=== PATIENT | male | born 1955 | race Hispanic/Latino ===

== ENCOUNTER 2018-01-15 15:38 | Inpatient (IN) | payer OTHER ==
[2018-01-15 17:42] LABS: Basophils % (Auto) 0.6 % (0.0-1.8); Eosinophils # (Auto) 0.2 K/mm3 (0.0-0.4); Hematocrit 31.4 % (35.5-45.6); Hemoglobin 10.2 gm/dl (11.8-15.2); Lymphocytes # (Auto) 0.5 K/mm3 (1.2-5.4); Lymphocytes % (Auto) 8.3 % (13.4-35.0); Mean Corpuscular HGB Conc 32 % (32-34); Mean Corpuscular Hemoglobin 28 pg (28-32); Mean Corpuscular Volume 87 fl (84-94); Monocytes # (Auto) 0.5 K/mm3 (0.0-0.8); Monocytes % (Auto) 7.5 % (0.0-7.3); Platelet Count 168 K/mm3 (140-440); Red Blood Count 3.61 M/mm3 (3.65-5.03); Red Cell Distribution Width 16.7 % (13.2-15.2)
[2018-01-15 18:04] LABS: Albumin 3.9 g/dL (3.9-5)
--- NOTE | 2018-01-15 21:50 | XRay Report ---
FINAL REPORT EXAM: XR CHEST ROUTINE 2V HISTORY: sob TECHNIQUE: 2 views of the chest. PRIORS: 01/15/2018 FINDINGS: Multiple sternotomy wires and coronary osteal rings are noted consistent with prior CABG. The cardiomediastinal silhouette appears normal. The lungs are clear. There is mild blunting of the left costophrenic angle consistent with a small pleural effusion or pleural scar. The bones and soft tissues are unremarkable. IMPRESSION: No evidence of acute cardiopulmonary disease
[2018-01-16] MEDS ORDERED: LASIX IV ONE (00:06)
--- NOTE | 2018-01-16 00:46 | Emergency Department Report ---
HPI - General Chief Complaint: Extremity Problem,Nontraumatic Time Seen by Provider: 01/16/18 00:04 - HPI HPI: 62-year-old male presents to ED with worsening of lower extremity swelling, for the past week. Patient has a history of chronic kidney disease stage III, has been on Lasix for lower extremity swelling without relief. His PCP recently change his Lasix to Bumex but his leg swelling did not improve so he was advised by his PCP to come to ED for further evaluation. ED Past Medical Hx - Past Medical History Hx Hypertension: Yes Hx Heart Attack/AMI: Yes Hx Congestive Heart Failure: Yes Hx Diabetes: Yes Hx Renal Disease: Yes Additional medical history: CHRONIC RENAL INSUFFIENCY - Surgical History Hx Open Heart Surgery: Yes Additional Surgical History: CABG - Social History Smoking Status: Never Smoker Substance Use Type: None - Medications Home Medications: Home Medications Medication Instructions Recorded Confirmed Last Taken Type AtorvaSTATin [Lipitor] 40 mg PO QHS 12/10/17 12/10/17 12/09/17 History Carvedilol [Coreg] 6.25 mg PO DAILY 12/10/17 12/10/17 12/10/17 History Clopidogrel [Plavix] 75 mg PO DAILY 12/10/17 12/10/17 12/10/17 History Insulin Aspart [NovoLOG Flexpen] 6 units SQ DAILY 12/10/17 12/10/17 12/10/17 History Insulin Detemir [Levemir Flextouch] 18 units SQ DAILY 12/10/17 12/10/17 History amLODIPine [Norvasc] 10 mg PO QDAY #30 tablet 12/13/17 Unknown Rx cloNIDine [Catapres] 0.2 mg PO QID #90 tablet 12/13/17 Unknown Rx ED Review of Systems ROS: Stated complaint: FLUID IN LEGS Other details as noted in HPI Comment: All other systems reviewed and negative Constitutional: no symptoms reported Cardiovascular: dyspnea on exertion, orthopnea, edema Hematological/Lymphatic: other (lower extremity swelling) Physical Exam - Physical Exam Vital Signs: Vital Signs 01/15/18 01/15/18 01/16/18 16:49 23:59 00:02 Temperature 97.9 F Pulse Rate 64 72 Respiratory 16 17 Rate Blood Pressure 172/63 O2 Sat by Pulse 94 85 Oximetry 01/16/18 01/16/18 00:15 00:25 Temperature Pulse Rate 67 Respiratory 8 L 13 Rate Blood Pressure 181/82 O2 Sat by Pulse 96 96 Oximetry Physical Exam: - Physical Exam Physical Exam: - General Limitations: No Limitations General appearance: alert, in no apparent distress - Head Head exam: Present: atraumatic, normocephalic - Eye Eye exam: Present: normal appearance - ENT ENT exam: Present: mucous membranes moist - Neck Neck exam: Present: normal inspection - Respiratory Respiratory exam: Present: normal lung sounds bilaterally. Absent: respiratory distress - Cardiovascular Cardiovascular Exam: Present: normal rhythm, normal rate. Absent: systolic murmur, diastolic murmur, rubs, gallop - GI/Abdominal GI/Abdominal exam: Present: soft, normal bowel sounds - Extremities Exam Extremities exam: Present: 4+ bilateral lower extremity edema - Back Exam Back exam: Present: normal inspection - Neurological Exam Neurological exam: Present: alert, oriented X3 - Psychiatric Psychiatric exam: normal affect and mood - Skin Skin exam: Present: warm, dry, intact, normal color. Absent: rash ED Course Vital Signs 01/15/18 01/15/18 01/16/18 16:49 23:59 00:02 Temperature 97.9 F Pulse Rate 64 72 Respiratory 16 17 Rate Blood Pressure 172/63 O2 Sat by Pulse 94 85 Oximetry 01/16/18 01/16/18 00:15 00:25 Temperature Pulse Rate 67 Respiratory 8 L 13 Rate Blood Pressure 181/82 O2 Sat by Pulse 96 96 Oximetry - Reevaluation(s) Reevaluation #1: 01/16/18 01:11 Patient was given Lasix 40 IV in ED. His kidney function showed a BUN/ creatinine creatinine. elevated GFR 25. ED Medical Decision Making - Lab Data Result diagrams: 01/15/18 17:14 01/15/18 17:14 Critical care attestation.: If time is entered above; I have spent that time in minutes in the direct care of this critically ill patient, excluding procedure time. ED Disposition Clinical Impression: CHF (congestive heart failure) Qualifiers: Heart failure type: systolic Heart failure chronicity: acute Qualified Code(s) : I50.21 - Acute systolic (congestive) heart failure ARF (acute renal failure) Qualifiers: Acute renal failure type: unspecified Qualified Code(s): N17.9 - Acute kidney failure, unspecified Disposition: DC-09 OP ADMIT IP TO THIS HOSP Is pt being admited?: Yes Does the pt Need Aspirin: No Condition: Stable Referrals: PRIMARY CARE, [Primary Care Provider] - 3-5 Days
[2018-01-16] MEDS ORDERED: LANTUS SUB-Q SCH ×2 (01:00→22:00)
[2018-01-16 01:13] LABS: INR 1.15 (0.87-1.13)
[2018-01-16 01:14] LABS: Partial Thromboplastin Time 37.4 Sec. (24.2-36.6)
[2018-01-16] MEDS ORDERED: NITROSTAT SL PRN (02:44)
[2018-01-16] MEDS ORDERED: APRESOLINE IV PRN (02:49)
[2018-01-16] MEDS ORDERED: ZOFRAN IV PRN (02:51)
[2018-01-16] MEDS ORDERED: D50W (25GM) Syringe IV PRN (02:54)
[2018-01-16] MEDS ORDERED: APRESOLINE ONE (03:15)
--- NOTE | 2018-01-16 03:28 | History and Physical Report ---
History of Present Illness Date of examination: 01/16/18 Date of admission: 01/16/18 01:50 Chief complaint: Worsening leg swelling History of present illness: Patient is a 62-year-old male with medical hx significant for CHF who presented to the ED on account of 2 weeks history of worsening bilateral leg swelling. He has associated shortness of breath with mild exertion, palpitations, dry cough, orthopnea and PND. He denies chest pain, fever or chills headaches, nausea or vomiting, dizziness, syncope or loss of consciousness. 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 He was previously taking furosemide which was switched to Bumex. Past History Past Medical History: CAD (status post CABG), diabetes, heart failure, hypertension, renal failure Past Surgical History: CABG Social history: other (He is an ex-smoker, quit 35 years ago. He denies alcohol or illicit drug use) Family history: other (reviewed and noncontributory) Medications and Allergies Allergies Allergy/AdvReac Type Severity Reaction Status Date / Time No Known Allergies Allergy Verified 01/15/18 16:49 Home Medications Medication Instructions Recorded Confirmed Last Taken Type AtorvaSTATin [Lipitor] 40 mg PO QHS 12/10/17 12/10/17 12/09/17 History Carvedilol [Coreg] 6.25 mg PO DAILY 12/10/17 12/10/17 12/10/17 History Clopidogrel [Plavix] 75 mg PO DAILY 12/10/17 12/10/17 12/10/17 History Insulin Aspart [NovoLOG Flexpen] 6 units SQ DAILY 12/10/17 12/10/17 12/10/17 History Insulin Detemir [Levemir Flextouch] 18 units SQ DAILY 12/10/17 12/10/17 History amLODIPine [Norvasc] 10 mg PO QDAY #30 tablet 12/13/17 Unknown Rx cloNIDine [Catapres] 0.2 mg PO QID #90 tablet 12/13/17 Unknown Rx Active Meds: Active Medications Amlodipine Besylate (Norvasc) 10 mg PO DAILY RAYNE Aspirin (Halfprin Ec) 81 mg PO QDAY RAYNE Clonidine HCl (Catapres) 0.2 mg PO TID RAYNE Clopidogrel Bisulfate (Plavix) 75 mg PO DAILY RAYNE Dextrose (D50w (25gm) Syringe) 50 ml IV PRN PRN PRN Reason: Hypoglycemia Furosemide (Lasix) 40 mg IV Q8H RAYNE Hydralazine HCl (Apresoline) 20 mg IV Q6H PRN PRN Reason: Blood Pressure Last Admin: 01/16/18 03:21 Dose: 20 mg Insulin Glargine (Lantus) 20 units SUB-Q BID RAYNE Insulin Human Regular (Humulin R) 0 units SUB-Q ACHS RAYNE; Protocol Nitroglycerin (Nitrostat) 0.4 mg SL .Q5MIN PRN PRN Reason: Chest Pain Ondansetron HCl (Zofran) 4 mg IV Q6H PRN PRN Reason: Nausea Review of Systems All systems: negative (except as documented in the HPI, all other systems were reviewed and negative) Exam - Constitutional Vitals: Temp Pulse Resp BP Pulse Ox 97.9 F 73 18 187/71 93 01/15/18 16:49 01/16/18 03:21 01/16/18 03:00 01/16/18 03:21 01/16/18 03:00 General appearance: Present: no acute distress, well-nourished - EENT Eyes: Present: PERRL (legally blind in both eyes) ENT: hearing intact, clear oral mucosa - Neck Neck: Present: supple, normal ROM - Respiratory Respiratory effort: normal Respiratory: bilateral: diminished, rales - Cardiovascular Rhythm: regular Heart Sounds: Present: S1 & S2 - Extremities Extremities: pulses symmetrical Extremity abnormal: edema (in BLE) Peripheral Pulses: within normal limits - Abdominal General gastrointestinal: Present: soft, non-tender, non-distended, normal bowel sounds Male genitourinary: Present: normal - Integumentary Integumentary: Present: warm, dry - Musculoskeletal Musculoskeletal: gait normal, strength equal bilaterally - Psychiatric Psychiatric: appropriate mood/affect, intact judgment & insight - Neurologic Neurologic: CNII-XII intact, moves all extremities Results - Labs CBC & Chem 7: 01/15/18 17:14 01/15/18 17:14 Labs: Laboratory Last Values WBC 6.1 K/mm3 (4.5-11.0) 01/15/18 17:14 RBC 3.61 M/mm3 (3.65-5.03) L 01/15/18 17:14 Hgb 10.2 gm/dl (11.8-15.2) L 01/15/18 17:14 Hct 31.4 % (35.5-45.6) L 01/15/18 17:14 MCV 87 fl (84-94) 01/15/18 17:14 MCH 28 pg (28-32) 01/15/18 17:14 MCHC 32 % (32-34) 01/15/18 17:14 RDW 16.7 % (13.2-15.2) H 01/15/18 17:14 Plt Count 168 K/mm3 (140-440) 01/15/18 17:14 Lymph % (Auto) 8.3 % (13.4-35.0) L 01/15/18 17:14 [place] % (Auto) 7.5 % (0.0-7.3) H 01/15/18 17:14 Eos % (Auto) 4.0 % (0.0-4.3) 01/15/18 17:14 Baso % (Auto) 0.6 % (0.0-1.8) 01/15/18 17:14 Lymph # 0.5 K/mm3 (1.2-5.4) L 01/15/18 17:14 [place] # 0.5 K/mm3 (0.0-0.8) 01/15/18 17:14 Eos # 0.2 K/mm3 (0.0-0.4) 01/15/18 17:14 Baso # 0.0 K/mm3 (0.0-0.1) 01/15/18 17:14 Seg Neutrophils % 79.6 % (40.0-70.0) H 01/15/18 17:14 Seg Neutrophils # 4.9 K/mm3 (1.8-7.7) 01/15/18 17:14 PT 15.3 Sec. (12.2-14.9) H 01/16/18 00:34 INR 1.15 (0.87-1.13) H 01/16/18 00:34 APTT 37.4 Sec. (24.2-36.6) H 01/16/18 00:34 Sodium 138 mmol/L (137-145) 01/15/18 17:14 Potassium 4.3 mmol/L (3.6-5.0) 01/15/18 17:14 Chloride 97.4 mmol/L (98-107) L 01/15/18 17:14 Carbon Dioxide 25 mmol/L (22-30) 01/15/18 17:14 Anion Gap 20 mmol/L 01/15/18 17:14 BUN 53 mg/dL (9-20) H 01/15/18 17:14 Creatinine 2.6 mg/dL (0.8-1.5) H 01/15/18 17:14 Estimated GFR 25 ml/min 01/15/18 17:14 BUN/Creatinine Ratio 20 % 01/15/18 17:14 Glucose 218 mg/dL (75-100) H 01/15/18 17:14 POC Glucose 256 (70-105) H 01/16/18 03:25 Calcium 8.0 mg/dL (8.4-10.2) L 01/15/18 17:14 Total Bilirubin 1.10 mg/dL (0.1-1.2) 01/15/18 17:14 AST 12 units/L (5-40) 01/15/18 17:14 ALT 12 units/L (7-56) 01/15/18 17:14 Alkaline Phosphatase 107 units/L (35-129) 01/15/18 17:14 Troponin T 0.110 ng/mL (0.00-0.029) H* 01/16/18 00:34 NT-Pro-B Natriuret Pep 6509 pg/mL (0-900) H 01/16/18 00:34 Total Protein 6.7 g/dL (6.3-8.2) 01/15/18 17:14 Albumin 3.9 g/dL (3.9-5) 01/15/18 17:14 Albumin/Globulin Ratio 1.4 % 01/15/18 17:14 Assessment and Plan Assessment and plan: Acute CHF exacerbation -EF is unknown, will order echocardiogram for assessment -Start CHF protocol Elevated troponin probably secondary to demand ischemia -Continue serial troponin level monitoring -Resume his home Plavix, aspirin and lipitor. 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
[2018-01-16 03:41] LABS: Chol/HDL Ratio 3.18 %
[2018-01-16] MEDS: LASIX IV SCH ×3 (06:06→22:00)
[2018-01-16] MEDS: HumuLIN R SUB-Q SCH ×4 (07:30→23:16)
--- NOTE | 2018-01-16 11:34 | Progress Note ---
Assessment and Plan Assessment and plan: Acute CHF exacerbation -EF is unknown, follow-up echocardiogram for assessment Patient with elevated BNP of 6500 but chest x-ray found to be negative -Continue CHF protocol -Cardiology consultation Elevated troponin probably secondary to CKD IV -Continue serial troponin level monitoring -Resume his home Plavix, aspirin and lipitor. 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 Uncontrolled hypertension -Resume his home antihypertensives and add when necessary iv hydralazine Chronic anemia -H/H are stable, will monitor Prophylaxis -DVT prophylaxis with SCD Additional 30 to minutes spent in coordinating care after admission History Interval history: No new issues since admission Hospitalist Physical - Constitutional Vitals: Temp Pulse Resp BP Pulse Ox 98.4 F 81 20 180/64 96 01/16/18 07:43 01/16/18 07:43 01/16/18 07:43 01/16/18 07:43 01/16/18 07:43 General appearance: Present: no acute distress, well-nourished - EENT Eyes: Present: PERRL, EOM intact ENT: hearing intact, clear oral mucosa, dentition normal - Neck Neck: Present: supple, normal ROM - Respiratory Respiratory effort: normal Respiratory: bilateral: CTA - Cardiovascular Rhythm: regular Heart Sounds: Present: S1 & S2. Absent: gallop, rub - Extremities Extremities: no ischemia, No edema, Full ROM - Abdominal General gastrointestinal: soft, non-tender, non-distended, normal bowel sounds - Integumentary Integumentary: Present: clear, warm, dry - Neurologic Neurologic: CNII-XII intact, moves all extremities Results - Labs CBC & Chem 7: 01/15/18 17:14 01/15/18 17:14 Labs: Laboratory Last Values WBC 6.1 K/mm3 (4.5-11.0) 01/15/18 17:14 RBC 3.61 M/mm3 (3.65-5.03) L 01/15/18 17:14 Hgb 10.2 gm/dl (11.8-15.2) L 01/15/18 17:14 Hct 31.4 % (35.5-45.6) L 01/15/18 17:14 MCV 87 fl (84-94) 01/15/18 17:14 MCH 28 pg (28-32) 01/15/18 17:14 MCHC 32 % (32-34) 01/15/18 17:14 RDW 16.7 % (13.2-15.2) H 01/15/18 17:14 Plt Count 168 K/mm3 (140-440) 01/15/18 17:14 Lymph % (Auto) 8.3 % (13.4-35.0) L 01/15/18 17:14 [place] % (Auto) 7.5 % (0.0-7.3) H 01/15/18 17:14 Eos % (Auto) 4.0 % (0.0-4.3) 01/15/18 17:14 Baso % (Auto) 0.6 % (0.0-1.8) 01/15/18 17:14 Lymph # 0.5 K/mm3 (1.2-5.4) L 01/15/18 17:14 [place] # 0.5 K/mm3 (0.0-0.8) 01/15/18 17:14 Eos # 0.2 K/mm3 (0.0-0.4) 01/15/18 17:14 Baso # 0.0 K/mm3 (0.0-0.1) 01/15/18 17:14 Seg Neutrophils % 79.6 % (40.0-70.0) H 01/15/18 17:14 Seg Neutrophils # 4.9 K/mm3 (1.8-7.7) 01/15/18 17:14 PT 15.3 Sec. (12.2-14.9) H 01/16/18 00:34 INR 1.15 (0.87-1.13) H 01/16/18 00:34 APTT 37.4 Sec. (24.2-36.6) H 01/16/18 00:34 Sodium 138 mmol/L (137-145) 01/15/18 17:14 Potassium 4.3 mmol/L (3.6-5.0) 01/15/18 17:14 Chloride 97.4 mmol/L (98-107) L 01/15/18 17:14 Carbon Dioxide 25 mmol/L (22-30) 01/15/18 17:14 Anion Gap 20 mmol/L 01/15/18 17:14 BUN 53 mg/dL (9-20) H 01/15/18 17:14 Creatinine 2.6 mg/dL (0.8-1.5) H 01/15/18 17:14 Estimated GFR 25 ml/min 01/15/18 17:14 BUN/Creatinine Ratio 20 % 01/15/18 17:14 Glucose 218 mg/dL (75-100) H 01/15/18 17:14 POC Glucose 194 (70-105) H 01/16/18 09:01 Calcium 8.0 mg/dL (8.4-10.2) L 01/15/18 17:14 Total Bilirubin 1.10 mg/dL (0.1-1.2) 01/15/18 17:14 AST 12 units/L (5-40) 01/15/18 17:14 ALT 12 units/L (7-56) 01/15/18 17:14 Alkaline Phosphatase 107 units/L (35-129) 01/15/18 17:14 Troponin T 0.116 ng/mL (0.00-0.029) H* 01/16/18 05:38 NT-Pro-B Natriuret Pep 6509 pg/mL (0-900) H 01/16/18 00:34 Total Protein 6.7 g/dL (6.3-8.2) 01/15/18 17:14 Albumin 3.9 g/dL (3.9-5) 01/15/18 17:14 Albumin/Globulin Ratio 1.4 % 01/15/18 17:14 Triglycerides 89 mg/dL (2-149) 01/16/18 00:34 Cholesterol 102 mg/dL (50-199) 01/16/18 00:34 LDL Cholesterol Direct 57 mg/dL (50-130) 01/16/18 00:34 HDL Cholesterol 32 mg/dL (40-59) L 01/16/18 00:34 Cholesterol/HDL Ratio 3.18 % 01/16/18 00:34
[2018-01-16] MEDS: NORVASC PO SCH (12:09)
[2018-01-16] MEDS: LANTUS SUB-Q SCH ×2 (12:10→23:14)
[2018-01-16] MEDS: HALFPRIN EC PO SCH (12:10)
[2018-01-16] MEDS: PLAVIX PO SCH (12:10)
[2018-01-16] MEDS: CATAPRES PO SCH ×3 (12:18→23:13)
--- NOTE | 2018-01-16 13:48 | Progress Note ---
Subjective Date of service: 01/16/18 Interval history: CONSULT DICTATED DIAST. CHF & [facility]. HTN Objective Vital Signs Temp Pulse Pulse Resp BP BP Pulse Ox 01/16/18 12:18 81 180/65 01/16/18 12:09 81 180/65 01/16/18 12:02 98.5 F 81 20 180/65 96 01/16/18 10:00 80 20 98 01/16/18 07:43 98.4 F 81 20 180/64 96 01/16/18 06:40 18 95 01/16/18 05:25 81 01/16/18 05:19 98.9 F 82 18 181/63 96 01/16/18 03:21 72 14 187/71 98 01/16/18 03:11 69 14 187/71 98 01/16/18 03:00 67 18 187/71 93 01/16/18 02:45 68 18 177/67 96 01/16/18 02:31 67 13 177/67 98 01/16/18 02:15 68 12 181/71 98 01/16/18 02:00 68 15 181/71 96 01/16/18 01:45 67 17 183/67 99 01/16/18 01:30 68 10 L 183/67 96 01/16/18 01:15 68 14 175/61 99 01/16/18 01:01 72 19 175/61 93 01/16/18 00:45 68 16 181/70 95 01/16/18 00:31 69 20 181/70 94 01/16/18 00:25 13 96 01/16/18 00:15 67 8 L 181/82 96 01/16/18 00:02 72 17 01/15/18 23:59 85 01/15/18 16:49 97.9 F 64 16 172/63 94 - Labs and Meds Cardiac Enzymes 01/15/18 Range/Units 17:14 AST 12 (5-40) units/L Coagulation 01/16/18 Range/Units 00:34 PT 15.3 H (12.2-14.9) Sec. INR 1.15 H (0.87-1.13) APTT 37.4 H (24.2-36.6) Sec. Lipids 01/16/18 Range/Units 00:34 Triglycerides 89 (2-149) mg/dL Cholesterol 102 (50-199) mg/dL HDL Cholesterol 32 L (40-59) mg/dL Cholesterol/HDL Ratio 3.18 % CBC 01/15/18 Range/Units 17:14 WBC 6.1 (4.5-11.0) K/mm3 RBC 3.61 L (3.65-5.03) M/mm3 Hgb 10.2 L (11.8-15.2) gm/dl Hct 31.4 L (35.5-45.6) % Plt Count 168 (140-440) K/mm3 Lymph # 0.5 L (1.2-5.4) K/mm3 [place] # 0.5 (0.0-0.8) K/mm3 Eos # 0.2 (0.0-0.4) K/mm3 Baso # 0.0 (0.0-0.1) K/mm3 Comprehensive Metabolic Panel 01/15/18 Range/Units 17:14 Sodium 138 (137-145) mmol/L Potassium 4.3 (3.6-5.0) mmol/L Chloride 97.4 L (98-107) mmol/L Carbon Dioxide 25 (22-30) mmol/L BUN 53 H (9-20) mg/dL Creatinine 2.6 H (0.8-1.5) mg/dL Glucose 218 H (75-100) mg/dL Calcium 8.0 L (8.4-10.2) mg/dL AST 12 (5-40) units/L ALT 12 (7-56) units/L Alkaline Phosphatase 107 (35-129) units/L Total Protein 6.7 (6.3-8.2) g/dL Albumin 3.9 (3.9-5) g/dL
[2018-01-16] MEDS: NORMODYNE PO SCH ×2 (14:48→20:00)
[2018-01-17] MEDS: NORMODYNE PO SCH ×4 (02:00→22:02)
--- NOTE | 2018-01-17 04:01 | Consultation ---
HISTORY OF PRESENT ILLNESS: The patient is a 62-year-old male with an extensive medical history that includes a history of congestive heart failure and coronary artery bypass surgery. He presented with a 2-week history of worsening bilateral ankle swelling and weight gain. There has been shortness of breath, orthopnea, PND, palpitations, dry cough, but no fever or sputum. There is no history of lung disease. Has bypass surgery four years ago. There has been no angina. He sees Nephrology for chronic kidney disease. He normally tries to be active. He tries to follow appropriate diet, but eats some processed foods. There have been no arrhythmias or stroke. ALLERGIES: NONE. MEDICATIONS: See the nurse's list. SOCIAL HISTORY: Smoking: None. Alcohol: No heavy use. There is a remote history of smoking, no history of lung disease. REVIEW OF SYSTEMS: Includes hyperlipidemia that is controlled, chronic kidney disease, uncontrolled diabetes, anemia. 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 PHYSICAL EXAMINATION: GENERAL: Well-developed, moderately overweight, no acute distress. Alert, oriented and cooperative. Mental status normal. HEENT: Unremarkable. NECK: Reveals JVD. There are no bruits. Neck supple, no masses. LUNGS: Diminished breath sounds. No rales or rhonchi appreciable. HEART: Regular rhythm. Soft S4. No murmurs or rubs. ABDOMEN: Soft, nontender, no masses. EXTREMITIES: No cyanosis, clubbing. There is 1+ pedal edema. Peripheral pulses are intact. NEUROLOGIC: Symmetrical. SKIN: Clear. IMPRESSION: 1. Diastolic congestive heart failure precipitated by fluid retention and uncontrolled hypertension. 2. Uncontrolled hypertension. 3. Elevated troponin, probably secondary to chronic kidney disease. 4. Chronic kidney disease. 5. Hyperlipidemia, controlled. 6. Diabetes, uncontrolled. 7. Obesity. 8. History of coronary artery bypass surgery 4 years ago, stable. 9. Blindness. PLAN: Diuresis as per Nephrology. We discussed strict diet and daily weights to avoid this. We will try labetalol for better blood pressure control. Review the echocardiogram that preliminarily shows normal ejection fraction. JOB# [id number] JDS/NTS
[2018-01-17] MEDS: LASIX IV SCH ×3 (06:00→22:00)
[2018-01-17] MEDS: HumuLIN R SUB-Q SCH ×4 (07:30→22:01)
--- NOTE | 2018-01-17 09:09 | Progress Note ---
Assessment and Plan Assessment and plan: Acute CHF exacerbation -EF is unknown, follow-up echocardiogram for assessment Patient with elevated BNP of 6500 but chest x-ray found to be negative -Continue CHF protocol -Cardiology consultation Elevated troponin probably secondary to CKD IV -Continue serial troponin level monitoring -Resume his home Plavix, aspirin and lipitor. -Cardiology consultation Insulin-dependent diabetes mellitus type 2 with hyperglycemia -Continue on both basal and prandial insulin regimen Acute on chronic kidney disease stage IV -Continue IV diuretic and monitor his creatinine level -Consult nephrology Uncontrolled hypertension -Continue antihypertensives and iv hydralazine prn Chronic anemia -H/H are stable, will monitor Prophylaxis -DVT prophylaxis with SCD History Interval history: No new issues since admission Hospitalist Physical - Constitutional Vitals: Temp Pulse Resp BP Pulse Ox 98.2 F 66 18 171/68 95 01/17/18 05:16 01/17/18 05:16 01/17/18 05:16 01/17/18 05:16 01/17/18 05:16 General appearance: Present: no acute distress, well-nourished - EENT Eyes: Present: PERRL, EOM intact ENT: hearing intact, clear oral mucosa, dentition normal - Neck Neck: Present: supple, normal ROM - Respiratory Respiratory effort: normal Respiratory: bilateral: CTA - Cardiovascular Rhythm: regular Heart Sounds: Present: S1 & S2. Absent: gallop, rub - Extremities Extremities: no ischemia, No edema, Full ROM - Abdominal General gastrointestinal: soft, non-tender, non-distended, normal bowel sounds - Integumentary Integumentary: Present: clear, warm, dry - Neurologic Neurologic: CNII-XII intact, moves all extremities Results - Labs CBC & Chem 7: 01/15/18 17:14 01/15/18 17:14 Labs: Laboratory Last Values WBC 6.1 K/mm3 (4.5-11.0) 01/15/18 17:14 RBC 3.61 M/mm3 (3.65-5.03) L 01/15/18 17:14 Hgb 10.2 gm/dl (11.8-15.2) L 01/15/18 17:14 Hct 31.4 % (35.5-45.6) L 01/15/18 17:14 MCV 87 fl (84-94) 01/15/18 17:14 MCH 28 pg (28-32) 01/15/18 17:14 MCHC 32 % (32-34) 01/15/18 17:14 RDW 16.7 % (13.2-15.2) H 01/15/18 17:14 Plt Count 168 K/mm3 (140-440) 01/15/18 17:14 Lymph % (Auto) 8.3 % (13.4-35.0) L 01/15/18 17:14 [place] % (Auto) 7.5 % (0.0-7.3) H 01/15/18 17:14 Eos % (Auto) 4.0 % (0.0-4.3) 01/15/18 17:14 Baso % (Auto) 0.6 % (0.0-1.8) 01/15/18 17:14 Lymph # 0.5 K/mm3 (1.2-5.4) L 01/15/18 17:14 [place] # 0.5 K/mm3 (0.0-0.8) 01/15/18 17:14 Eos # 0.2 K/mm3 (0.0-0.4) 01/15/18 17:14 Baso # 0.0 K/mm3 (0.0-0.1) 01/15/18 17:14 Seg Neutrophils % 79.6 % (40.0-70.0) H 01/15/18 17:14 Seg Neutrophils # 4.9 K/mm3 (1.8-7.7) 01/15/18 17:14 PT 15.3 Sec. (12.2-14.9) H 01/16/18 00:34 INR 1.15 (0.87-1.13) H 01/16/18 00:34 APTT 37.4 Sec. (24.2-36.6) H 01/16/18 00:34 Sodium 138 mmol/L (137-145) 01/15/18 17:14 Potassium 4.3 mmol/L (3.6-5.0) 01/15/18 17:14 Chloride 97.4 mmol/L (98-107) L 01/15/18 17:14 Carbon Dioxide 25 mmol/L (22-30) 01/15/18 17:14 Anion Gap 20 mmol/L 01/15/18 17:14 BUN 53 mg/dL (9-20) H 01/15/18 17:14 Creatinine 2.6 mg/dL (0.8-1.5) H 01/15/18 17:14 Estimated GFR 25 ml/min 01/15/18 17:14 BUN/Creatinine Ratio 20 % 01/15/18 17:14 Glucose 218 mg/dL (75-100) H 01/15/18 17:14 POC Glucose 95 (70-105) 01/17/18 08:28 Calcium 8.0 mg/dL (8.4-10.2) L 01/15/18 17:14 Total Bilirubin 1.10 mg/dL (0.1-1.2) 01/15/18 17:14 AST 12 units/L (5-40) 01/15/18 17:14 ALT 12 units/L (7-56) 01/15/18 17:14 Alkaline Phosphatase 107 units/L (35-129) 01/15/18 17:14 Troponin T 0.124 ng/mL (0.00-0.029) H* 01/16/18 13:52 NT-Pro-B Natriuret Pep 6509 pg/mL (0-900) H 01/16/18 00:34 Total Protein 6.7 g/dL (6.3-8.2) 01/15/18 17:14 Albumin 3.9 g/dL (3.9-5) 01/15/18 17:14 Albumin/Globulin Ratio 1.4 % 01/15/18 17:14 Triglycerides 89 mg/dL (2-149) 01/16/18 00:34 Cholesterol 102 mg/dL (50-199) 01/16/18 00:34 LDL Cholesterol Direct 57 mg/dL (50-130) 01/16/18 00:34 HDL Cholesterol 32 mg/dL (40-59) L 01/16/18 00:34 Cholesterol/HDL Ratio 3.18 % 01/16/18 00:34
[2018-01-17] MEDS: NORVASC PO SCH (09:13)
[2018-01-17] MEDS: CATAPRES PO SCH ×3 (09:13→22:03)
[2018-01-17] MEDS: HALFPRIN EC PO SCH (09:14)
[2018-01-17] MEDS: PLAVIX PO SCH (09:14)
[2018-01-17] MEDS: LANTUS SUB-Q SCH ×2 (09:14→22:00)
--- NOTE | 2018-01-17 11:12 | Progress Note ---
Assessment and Plan - Patient Problems (1) HTN (hypertension) Current Visit: Yes Status: Acute (2) Diastolic CHF Current Visit: Yes Status: Acute (3) CKD (chronic kidney disease) Current Visit: Yes Status: Acute (4) Hx of CABG Current Visit: Yes Status: Acute Subjective Date of service: 01/17/18 Interval history: SOB-IMPROVED Objective Vital Signs Temp Pulse Resp Resp BP Pulse Ox 01/17/18 10:25 69 180/72 01/17/18 09:13 69 180/72 01/17/18 08:33 97.8 F 69 20 180/72 96 01/17/18 05:16 98.2 F 66 18 171/68 95 01/17/18 02:00 66 169/68 01/17/18 00:38 98.1 F 67 20 160/61 92 01/16/18 23:13 65 166/63 01/16/18 22:00 18 01/16/18 20:50 97.9 F 65 18 166/63 94 01/16/18 20:00 68 160/62 01/16/18 17:42 98.2 F 65 20 154/60 97 01/16/18 14:50 72 156/56 01/16/18 14:48 72 156/56 01/16/18 14:19 72 156/56 94 01/16/18 13:00 81 01/16/18 12:18 81 180/65 01/16/18 12:09 81 180/65 01/16/18 12:02 98.5 F 81 20 180/65 96 - Physical Examination General: No Apparent Distress Neck: Positive: JVD/HJR Cardiac: Positive: Reg Rate and Rhythm Lungs: Positive: Decreased Breath Sounds Extremities: Present: edema (NO)
--- NOTE | 2018-01-17 11:36 | Consultation ---
History of Present Illness - Reason for Consult Consult date: 01/17/18 acute renal failure, chronic renal failure - History of Present Illness The patient is a 62-year-old male with medical history significant for Type 2 DM, HTN, CAD s/p CABG, CHF, CKD stage 3, Diabetic Nephropathy and legally blind who is well known to our service presented to the ED with 2 weeks history of worsening bilateral leg swelling and weight gain. Patient also reports shortness of breath with mild exertion, Orthopnea, PND and dry cough. He denies chest pain, fever, chills, N, V, D, abd pain, dizziness or syncope. Last week his Transportation Design Engineer switched furosemide to Bumex but he didn't have good response. His baseline creatinine is around 2 and on admission his creatinine was 2.6. Past History Past Medical History: CAD (status post CABG), diabetes, heart failure, hypertension, renal failure Past Surgical History: CABG Social history: other (He is an ex-smoker, quit 35 years ago. He denies alcohol or illicit drug use) Family history: other (reviewed and noncontributory) Medications and Allergies Allergies Allergy/AdvReac Type Severity Reaction Status Date / Time No Known Allergies Allergy Verified 01/15/18 16:49 Home Medications Medication Instructions Recorded Confirmed Last Taken Type AtorvaSTATin [Lipitor] 40 mg PO QHS 12/10/17 01/18/18 1 Day Ago History ~01/17/18 Carvedilol [Coreg] 6.25 mg PO DAILY 12/10/17 01/18/18 1 Day Ago History ~01/17/18 Clopidogrel [Plavix] 75 mg PO DAILY 12/10/17 01/18/18 1 Day Ago History ~01/17/18 Insulin Aspart [NovoLOG Flexpen] 6 units SQ DAILY 12/10/17 01/18/18 1 Day Ago History ~01/17/18 Insulin Detemir [Levemir Flextouch] 18 units SQ DAILY 12/10/17 01/18/18 1 Day Ago History ~01/17/18 amLODIPine [Norvasc] 10 mg PO QDAY #30 tablet 12/13/17 01/18/18 1 Day Ago Rx ~01/17/18 cloNIDine [Catapres] 0.2 mg PO QID #90 tablet 12/13/17 01/18/18 1 Day Ago Rx ~01/17/18 Active Meds: Active Medications Amlodipine Besylate (Norvasc) 10 mg PO DAILY [facility] Last Admin: 01/17/18 09:13 Dose: 10 mg Aspirin (Halfprin Ec) 81 mg PO QDAY [facility] Last Admin: 01/17/18 09:14 Dose: 81 mg Atorvastatin Calcium (Lipitor) 40 mg PO QHS [facility] Last Admin: 01/16/18 22:00 Dose: 40 mg Clonidine HCl (Catapres) 0.2 mg PO TID [facility] Last Admin: 01/17/18 09:13 Dose: 0.2 mg Clopidogrel Bisulfate (Plavix) 75 mg PO DAILY [facility] Last Admin: 01/17/18 09:14 Dose: 75 mg Dextrose (D50w (25gm) Syringe) 50 ml IV PRN PRN PRN Reason: Hypoglycemia Furosemide (Lasix) 40 mg IV Q8H [facility] Last Admin: 01/17/18 06:00 Dose: 40 mg Hydralazine HCl (Apresoline) 20 mg IV Q6H PRN PRN Reason: Blood Pressure Last Admin: 01/16/18 03:21 Dose: 20 mg Insulin Glargine (Lantus) 20 units SUB-Q BID [facility] Last Admin: 01/17/18 09:14 Dose: 20 units Insulin Human Regular (Humulin R) 0 units SUB-Q ACHS [facility]; Protocol Last Admin: 01/17/18 07:30 Dose: Not Given Labetalol HCl (Normodyne) 400 mg PO Q6H [facility] Nitroglycerin (Nitrostat) 0.4 mg SL .Q5MIN PRN PRN Reason: Chest Pain Ondansetron HCl (Zofran) 4 mg IV Q6H PRN PRN Reason: Nausea Review of Systems Constitutional: weight gain, no weight loss, no fever, no chills, no anorexia, no weakness, no poor appetite Ears, nose, mouth and throat: no epistaxis Cardiovascular: orthopnea, edema, shortness of breath, dyspnea on exertion, paroxysmal nocturnal dyspnea, high blood pressure, leg edema, decreased exercise tolerance, no chest pain, no palpitations, no rapid/irregular heart beat, no syncope, no lightheadedness Respiratory: cough, shortness of breath, dyspnea on exertion, no cough with sputum, no hemoptysis, no home oxygen Gastrointestinal: no abdominal pain, no nausea, no vomiting, no diarrhea, no melena Genitourinary Male: no dysuria, no hematuria, no polyuria, no kidney stones Rectal: no bleeding Musculoskeletal: no hot joints Integumentary: no rash, no sores, no wounds, no jaundice Neurological: no paralysis, no weakness, no syncope, no change in speech, no change in mentation, no confusion, no memory loss Psychiatric: no memory loss, no confusion Endocrine: weight change Exam - Vital Signs Vital signs: Vital Signs Temp Pulse Resp BP Pulse Ox 97.9 F 64 16 172/63 94 01/15/18 16:49 01/15/18 16:49 01/15/18 16:49 01/15/18 16:49 01/15/18 16:49 - General Appearance General appearance: well-developed, well-nourished, appears stated age, other ( no distress) EENT: ATNC, mucous membranes moist, hearing intact Neck: Present: neck supple, trachea midline Respiratory: Rales Heart: regular, S1S2, no murmurs Gastrointestinal: Present: normoactive bowel sounds. Absent: tenderness, distended Integumentary: no rash, warm and dry Neurologic: no asterixis, alert and oriented x3, other (bilateral blindness) Musculoskeletal: Present: other (2+ edema of both LEs noted ) Psychiatric: mood/affect appropriate, cooperative Results - Lab Results 01/18/18 05:55 01/18/18 05:55 Most recent lab results Calcium 8.0 mg/dL (8.4-10.2) L 01/15/18 17:14 Assessment and Plan 1. Acute kidney injury: SAMUEL superimposed on CKD stage 3 likely hemodynamically mediated in the CHF exacerbation. No hypotension. Monitor renal function. 2. Volume overload: Secondary to CHF exacerbation. Continue IV Lasix. Add Metolazone. Strict I/Os. 3. CKD stage 3. Secondary to Diabetic Nephropathy. 4. Anemia.
[2018-01-17 12:16] LABS: Calcium 8.4 mg/dL (8.4-10.2)
[2018-01-17] MEDS: MIRALAX 3350 PO SCH (14:34)
[2018-01-17] MEDS: ZAROXOLYN PO SCH (14:39)
[2018-01-17 15:34] LABS: Bacteria,Urine 1+ /HPF (Negative); Bilirubin,Urine NEG (Negative); Blood,Urine SM (Negative); Color,Urine Yellow (Yellow); Urobilinogen,Urine < 2.0 mg/dL (<2.0)
[2018-01-17 15:59] LABS: Creatinine,Urine 151.2 mg/dL (0.1-20.0); Protein/Creatinine Ratio,Urine 0.86
[2018-01-18] MEDS: NORMODYNE PO SCH ×4 (04:56→21:00)
[2018-01-18 06:09] LABS: Basophils % (Auto) 0.4 % (0.0-1.8); Eosinophils # (Auto) 0.3 K/mm3 (0.0-0.4); Eosinophils % (Auto) 5.3 % (0.0-4.3); Hemoglobin 9.2 gm/dl (11.8-15.2); Lymphocytes # (Auto) 0.5 K/mm3 (1.2-5.4); Lymphocytes % (Auto) 9.3 % (13.4-35.0); Mean Corpuscular HGB Conc 32 % (32-34); Mean Corpuscular Hemoglobin 27 pg (28-32); Mean Corpuscular Volume 87 fl (84-94); Monocytes # (Auto) 0.5 K/mm3 (0.0-0.8); Monocytes % (Auto) 8.7 % (0.0-7.3); Platelet Count 166 K/mm3 (140-440); Red Blood Count 3.35 M/mm3 (3.65-5.03); Red Cell Distribution Width 16.8 % (13.2-15.2)
[2018-01-18 06:33] LABS: Calcium 8.4 mg/dL (8.4-10.2)
[2018-01-18] MEDS: LASIX IV SCH ×3 (06:35→22:12)
[2018-01-18] MEDS: HumuLIN R SUB-Q SCH ×4 (08:00→22:55)
[2018-01-18] MEDS: CATAPRES PO SCH ×3 (09:50→22:00)
[2018-01-18] MEDS: LANTUS SUB-Q SCH ×2 (10:00→22:55)
[2018-01-18] MEDS: MIRALAX 3350 PO SCH (10:05)
[2018-01-18] MEDS: NORVASC PO SCH (10:06)
[2018-01-18] MEDS: HALFPRIN EC PO SCH (10:06)
[2018-01-18] MEDS: PLAVIX PO SCH (10:06)
--- NOTE | 2018-01-18 10:53 | Progress Note ---
Assessment and Plan 1. Acute kidney injury: SAMUEL superimposed on CKD stage 3 likely hemodynamically mediated in the CHF exacerbation. Creatinine level remains about the same. Monitor renal function. 2. Volume overload: Secondary to CHF exacerbation. Continue IV Lasix and Metolazone. Strict I/Os. 3. CKD stage 3. Secondary to Diabetic Nephropathy. 4. Anemia. Subjective Date of service: 01/18/18 Interval history: Patient is feeling slightly better. Objective - Vital Signs Vital signs: Vital Signs - 12hr 01/18/18 01/18/18 01/18/18 00:41 00:42 04:48 Temperature 98.3 F 97.9 F Pulse Rate 62 63 66 Respiratory 20 18 Rate Blood Pressure 138/54 155/58 O2 Sat by Pulse 72 L 92 95 Oximetry 01/18/18 01/18/18 01/18/18 04:56 07:30 09:50 Temperature 97.4 F L Pulse Rate 66 63 63 Respiratory 20 Rate Blood Pressure 155/58 140/55 140/55 O2 Sat by Pulse 84 Oximetry 01/18/18 10:06 Temperature Pulse Rate 63 Respiratory Rate Blood Pressure 140/55 O2 Sat by Pulse Oximetry - General Appearance General appearance: well-developed, well-nourished, appears stated age, other ( no distress) EENT: ATNC, mucous membranes moist, hearing intact Neck: supple Respiratory: Present: Rales Cardiology: regular, S1S2, no murmurs Gastrointestinal: normoactive bowel sounds, no tenderness, no distended Integumentary: no rash, warm and dry Neurologic: no asterixis, alert and oriented x3, other (bilateral blindness) Musculoskeletal: other (2+ edema of both LEs noted) Psychiatric: mood/affect appropriate, cooperative - Lab 01/18/18 05:55 01/18/18 05:55 Most recent lab results Calcium 8.4 mg/dL (8.4-10.2) 01/18/18 05:55 Urine Creatinine 151.2 mg/dL (0.1-20.0) H 01/17/18 14:55 Urine Sodium 35 mmol/L 01/17/18 14:55 Urine Total Protein 130 mg/dL (5-11.8) H 01/17/18 14:55
--- NOTE | 2018-01-18 11:18 | Progress Note ---
Assessment and Plan Acute heart failure with a preserved ejection fraction. CKD Hypertension Hx of CAD s/p 4vCABG 2013 Hx of Ischemic cardiomyopathy with an improved EF EF 50-55% on echocardiogram this admission Continue medical therapy for heart failure with a preserved ejection fraction. Subjective Date of service: 01/18/18 Interval history: Patient reports his breathing is better. Lower extremity edema is improving. Objective Vital Signs Temp Pulse Resp BP Pulse Ox 01/18/18 10:06 63 140/55 01/18/18 09:50 63 140/55 01/18/18 07:30 97.4 F L 63 20 140/55 84 01/18/18 04:56 66 155/58 01/18/18 04:48 97.9 F 66 18 155/58 95 01/18/18 00:42 63 92 01/18/18 00:41 98.3 F 62 20 138/54 72 L 01/17/18 22:03 69 149/58 01/17/18 22:02 69 149/58 01/17/18 20:42 95 01/17/18 19:34 98.0 F 65 20 149/58 80 L 01/17/18 17:00 98.6 F 63 18 146/57 88 01/17/18 14:39 65 143/53 01/17/18 14:38 65 143/53 01/17/18 14:33 64 143/53 91 01/17/18 13:00 65 01/17/18 12:19 98.1 F 64 18 152/53 92 - Physical Examination General: No Apparent Distress Cardiac: Positive: Reg Rate and Rhythm Lungs: Positive: Decreased Breath Sounds Neuro: Positive: Grossly Intact Extremities: Present: +1 Edema - Labs and Meds CBC 01/18/18 Range/Units 05:55 WBC 5.7 (4.5-11.0) K/mm3 RBC 3.35 L (3.65-5.03) M/mm3 Hgb 9.2 L (11.8-15.2) gm/dl Hct 29.0 L (35.5-45.6) % Plt Count 166 (140-440) K/mm3 Lymph # 0.5 L (1.2-5.4) K/mm3 Gem # 0.5 (0.0-0.8) K/mm3 Eos # 0.3 (0.0-0.4) K/mm3 Baso # 0.0 (0.0-0.1) K/mm3 Comprehensive Metabolic Panel 01/17/18 01/18/18 Range/Units 11:09 05:55 Sodium 142 141 (137-145) mmol/L Potassium 3.9 3.8 (3.6-5.0) mmol/L Chloride 100.6 99.6 (98-107) mmol/L Carbon Dioxide 26 26 (22-30) mmol/L BUN 48 H 51 H (9-20) mg/dL Creatinine 2.5 H 2.6 H (0.8-1.5) mg/dL Glucose 200 H 90 (75-100) mg/dL Calcium 8.4 8.4 (8.4-10.2) mg/dL
--- NOTE | 2018-01-18 12:18 | Progress Note ---
Assessment and Plan Assessment and plan: Acute CHF exacerbation -EF 50-55% on echocardiogram this admission -Patient with elevated BNP of 6500 but chest x-ray found to be negative -Continue CHF protocol -Cardiology following Elevated troponin probably secondary to CKD 3 -Continue serial troponin level monitoring -Continue home Plavix, aspirin and lipitor. Insulin-dependent diabetes mellitus type 2 with hyperglycemia -Continue on both basal and prandial insulin regimen Acute on chronic kidney disease stage 3 -Nephrology following -Creatinine appears to be stable. Continue to monitor BMP. Uncontrolled hypertension -Continue antihypertensives and iv hydralazine prn Chronic anemia -H/H are stable, will monitor Prophylaxis -DVT prophylaxis with SCD History Interval history: No new issues since admission Hospitalist Physical - Constitutional Vitals: Temp Pulse Resp BP Pulse Ox 97.4 F L 63 20 140/55 84 01/18/18 07:30 01/18/18 10:06 01/18/18 07:30 01/18/18 10:06 01/18/18 07:30 General appearance: Present: no acute distress, well-nourished - EENT Eyes: Present: PERRL, EOM intact ENT: hearing intact, clear oral mucosa, dentition normal - Neck Neck: Present: supple, normal ROM - Respiratory Respiratory effort: normal Respiratory: bilateral: CTA - Cardiovascular Rhythm: regular Heart Sounds: Present: S1 & S2. Absent: gallop, rub - Extremities Extremities: no ischemia, No edema, Full ROM - Abdominal General gastrointestinal: soft, non-tender, non-distended, normal bowel sounds - Integumentary Integumentary: Present: clear, warm, dry - Neurologic Neurologic: CNII-XII intact, moves all extremities Results - Labs CBC & Chem 7: 01/18/18 05:55 01/18/18 05:55 Labs: Laboratory Last Values WBC 5.7 K/mm3 (4.5-11.0) 01/18/18 05:55 RBC 3.35 M/mm3 (3.65-5.03) L 01/18/18 05:55 Hgb 9.2 gm/dl (11.8-15.2) L 01/18/18 05:55 Hct 29.0 % (35.5-45.6) L 01/18/18 05:55 MCV 87 fl (84-94) 01/18/18 05:55 MCH 27 pg (28-32) L 01/18/18 05:55 MCHC 32 % (32-34) 01/18/18 05:55 RDW 16.8 % (13.2-15.2) H 01/18/18 05:55 Plt Count 166 K/mm3 (140-440) 01/18/18 05:55 Lymph % (Auto) 9.3 % (13.4-35.0) L 01/18/18 05:55 [place] % (Auto) 8.7 % (0.0-7.3) H 01/18/18 05:55 Eos % (Auto) 5.3 % (0.0-4.3) H 01/18/18 05:55 Baso % (Auto) 0.4 % (0.0-1.8) 01/18/18 05:55 Lymph # 0.5 K/mm3 (1.2-5.4) L 01/18/18 05:55 [place] # 0.5 K/mm3 (0.0-0.8) 01/18/18 05:55 Eos # 0.3 K/mm3 (0.0-0.4) 01/18/18 05:55 Baso # 0.0 K/mm3 (0.0-0.1) 01/18/18 05:55 Seg Neutrophils % 76.3 % (40.0-70.0) H 01/18/18 05:55 Seg Neutrophils # 4.4 K/mm3 (1.8-7.7) 01/18/18 05:55 PT 15.3 Sec. (12.2-14.9) H 01/16/18 00:34 INR 1.15 (0.87-1.13) H 01/16/18 00:34 APTT 37.4 Sec. (24.2-36.6) H 01/16/18 00:34 Sodium 141 mmol/L (137-145) 01/18/18 05:55 Potassium 3.8 mmol/L (3.6-5.0) 01/18/18 05:55 Chloride 99.6 mmol/L (98-107) 01/18/18 05:55 Carbon Dioxide 26 mmol/L (22-30) 01/18/18 05:55 Anion Gap 19 mmol/L 01/18/18 05:55 BUN 51 mg/dL (9-20) H 01/18/18 05:55 Creatinine 2.6 mg/dL (0.8-1.5) H 01/18/18 05:55 Estimated GFR 25 ml/min 01/18/18 05:55 BUN/Creatinine Ratio 20 % 01/18/18 05:55 Glucose 90 mg/dL (75-100) 01/18/18 05:55 POC Glucose 274 (70-105) H 01/18/18 11:14 Calcium 8.4 mg/dL (8.4-10.2) 01/18/18 05:55 Total Bilirubin 1.10 mg/dL (0.1-1.2) 01/15/18 17:14 AST 12 units/L (5-40) 01/15/18 17:14 ALT 12 units/L (7-56) 01/15/18 17:14 Alkaline Phosphatase 107 units/L (35-129) 01/15/18 17:14 Troponin T 0.124 ng/mL (0.00-0.029) H* 01/16/18 13:52 NT-Pro-B Natriuret Pep 6509 pg/mL (0-900) H 01/16/18 00:34 Total Protein 6.7 g/dL (6.3-8.2) 01/15/18 17:14 Albumin 3.9 g/dL (3.9-5) 01/15/18 17:14 Albumin/Globulin Ratio 1.4 % 01/15/18 17:14 Triglycerides 89 mg/dL (2-149) 01/16/18 00:34 Cholesterol 102 mg/dL (50-199) 01/16/18 00:34 LDL Cholesterol Direct 57 mg/dL (50-130) 01/16/18 00:34 HDL Cholesterol 32 mg/dL (40-59) L 01/16/18 00:34 Cholesterol/HDL Ratio 3.18 % 01/16/18 00:34 Urine Color Yellow (Yellow) 01/17/18 11:34 Urine Turbidity Clear (Clear) 01/17/18 11:34 Urine pH 5.0 (5.0-7.0) 01/17/18 11:34 Ur Specific [place] 1.013 (1.003-1.030) 01/17/18 11:34 Urine Protein 100 mg/dl mg/dL (Negative) 01/17/18 11:34 Urine Glucose (UA) 50 mg/dL (Negative) 01/17/18 11:34 Urine Ketones Neg mg/dL (Negative) 01/17/18 11:34 Urine Blood Sm (Negative) 01/17/18 11:34 Urine Nitrite Neg (Negative) 01/17/18 11:34 Urine Bilirubin Neg (Negative) 01/17/18 11:34 Urine Urobilinogen < 2.0 mg/dL (<2.0) 01/17/18 11:34 Ur Leukocyte Esterase Neg (Negative) 01/17/18 11:34 Urine WBC (Auto) 1.0 /HPF (0.0-6.0) 01/17/18 11:34 Urine RBC (Auto) 3.0 /HPF (0.0-6.0) 01/17/18 11:34 U Epithel Cells (Auto) < 1.0 /HPF (0-13.0) 01/17/18 11:34 Urine Bacteria (Auto) 1+ /HPF (Negative) 01/17/18 11:34 Urine Creatinine 151.2 mg/dL (0.1-20.0) H 01/17/18 14:55 Protein/Creatinin Ratio 0.86 01/17/18 14:55 Urine Sodium 35 mmol/L 01/17/18 14:55 Urine Total Protein 130 mg/dL (5-11.8) H 01/17/18 14:55
[2018-01-18] MEDS: ZAROXOLYN PO SCH ×2 (14:10)
[2018-01-19] MEDS: NORMODYNE PO SCH ×4 (03:00→22:14)
[2018-01-19] MEDS ORDERED: LASIX IV SCH (06:00)
[2018-01-19 07:42] LABS: Calcium 8.2 mg/dL (8.4-10.2)
[2018-01-19] MEDS: HumuLIN R SUB-Q SCH ×4 (08:33→22:45)
[2018-01-19] MEDS: CATAPRES PO SCH ×3 (09:00→21:45)
[2018-01-19] MEDS: LANTUS SUB-Q SCH (09:19)
--- NOTE | 2018-01-19 10:43 | Progress Note ---
Assessment and Plan Acute heart failure with a preserved ejection fraction. CKD DM Hypertension Hx of CAD s/p 4vCABG 2013 Hx of Ischemic cardiomyopathy with an improved EF EF 50-55% on echocardiogram this admission. Plan: Continue medical therapy for heart failure with a preserved ejection fraction. Subjective Date of service: 01/19/18 Interval history: Patient reports a hypoglycemic episode overnight. He reports his breathing is better. Objective Vital Signs Temp Pulse Resp BP BP Pulse Ox 01/19/18 09:47 97.7 F 57 L 18 151/55 97 01/19/18 09:00 57 L 151/55 01/19/18 05:00 60 01/19/18 04:11 58 L 93 01/19/18 04:10 97.9 F 59 L 20 140/55 94 01/18/18 23:49 97.7 F 59 L 20 141/56 97 01/18/18 22:00 63 140/54 98 01/18/18 21:00 58 L 140/54 01/18/18 19:29 97.5 F L 63 20 140/54 98 01/18/18 19:26 63 98 01/18/18 16:40 65 140/83 01/18/18 15:11 98.4 F 65 20 140/53 83 L 01/18/18 14:10 67 153/53 01/18/18 11:45 98.6 F 70 20 153/53 88 - Physical Examination General: No Apparent Distress Cardiac: Positive: Reg Rate and Rhythm Lungs: Positive: Decreased Breath Sounds Neuro: Positive: Grossly Intact Extremities: Present: +1 Edema - Labs and Meds Comprehensive Metabolic Panel 01/19/18 Range/Units 06:56 Sodium 136 L (137-145) mmol/L Potassium 4.0 (3.6-5.0) mmol/L Chloride 95.6 L (98-107) mmol/L Carbon Dioxide 25 (22-30) mmol/L BUN 52 H (9-20) mg/dL Creatinine 3.0 H (0.8-1.5) mg/dL Glucose 71 L (75-100) mg/dL Calcium 8.2 L (8.4-10.2) mg/dL
[2018-01-19] MEDS: NORVASC PO SCH (10:52)
[2018-01-19] MEDS: PLAVIX PO SCH (10:52)
[2018-01-19] MEDS: HALFPRIN EC PO SCH (10:52)
[2018-01-19] MEDS: ZAROXOLYN PO SCH (10:52)
[2018-01-19] MEDS: MIRALAX 3350 PO SCH (10:52)
[2018-01-19] MEDS: CEPHULAC PO PRN (11:10)
--- NOTE | 2018-01-19 13:02 | Progress Note ---
Assessment and Plan 1. Acute kidney injury: SAMUEL superimposed on CKD stage 3 likely hemodynamically mediated in the CHF exacerbation +/- diuresis. Creatinine level is increasing. Discussed with patient and his in length regarding the treatment options including adjusting diuretics and dialysis to remove excess fluid. Monitor renal function. 2. Volume overload: Secondary to CHF exacerbation. Start on IV Lasix drip. Overall the volume status is better. Strict I/Os. 3. CKD stage 3. Secondary to Diabetic Nephropathy. 4. Anemia. Subjective Date of service: 01/19/18 Interval history: Patient is feeling ok. Objective - Vital Signs Vital signs: Vital Signs - 12hr 01/19/18 01/19/18 01/19/18 04:10 04:11 05:00 Temperature 97.9 F Pulse Rate 59 L 58 L 60 Respiratory 20 Rate Blood Pressure 140/55 Blood Pressure [Left] O2 Sat by Pulse 94 93 Oximetry 01/19/18 01/19/18 01/19/18 09:00 09:47 10:52 Temperature 97.7 F Pulse Rate 57 L 57 L 57 L Respiratory 18 Rate Blood Pressure 151/55 151/55 Blood Pressure 151/55 [Left] O2 Sat by Pulse 97 Oximetry - General Appearance General appearance: well-developed, well-nourished, appears stated age, other ( no distress) EENT: ATNC, PERRL, mucous membranes moist, hearing intact Neck: supple Respiratory: Present: Clear to Ascultation Cardiology: regular, S1S2, no murmurs Gastrointestinal: normoactive bowel sounds, no tenderness, no distended, obese Integumentary: no rash, warm and dry Neurologic: no asterixis, alert and oriented x3, other (bilateral blindness) Musculoskeletal: other (1+ edema of both LEs noted) Psychiatric: mood/affect appropriate, cooperative - Lab 01/20/18 07:35 01/20/18 07:35 Most recent lab results Calcium 8.2 mg/dL (8.4-10.2) L 01/19/18 06:56 Urine Creatinine 151.2 mg/dL (0.1-20.0) H 01/17/18 14:55 Urine Sodium 35 mmol/L 01/17/18 14:55 Urine Total Protein 130 mg/dL (5-11.8) H 01/17/18 14:55
--- NOTE | 2018-01-19 16:44 | Progress Note ---
Assessment and Plan Assessment and plan: Acute CHF exacerbation -EF 50-55% on echocardiogram this admission -Patient with elevated BNP of 6500 but chest x-ray found to be negative -Continue CHF protocol -Cardiology following Elevated troponin probably secondary to CKD 3 -Continue serial troponin level monitoring -Continue home Plavix, aspirin and lipitor. Insulin-dependent diabetes mellitus type 2 with hyperglycemia -Continue on both basal and prandial insulin regimen - AdJUST MEDICATION FOR BETTER GLYCEMIC CONTROL Acute on chronic kidney disease stage 3 -Nephrology following -Creatinine appears to be stable. Continue to monitor BMP. Uncontrolled hypertension -Continue antihypertensives and iv hydralazine prn Chronic anemia -H/H are stable, will monitor Prophylaxis -DVT prophylaxis with SCD Discussed extensively with spouse and patient in detail. Will await renal improvement History Interval history: Patient seen and examined, reports BM with laxative given, Intermittent low blood glucose in AM. otherwise no other complaints. Hospitalist Physical - Physical exam Narrative exam: General appearance: Present: no acute distress, well-nourished - EENT Eyes: Present: PERRL, Legally blind ENT: hearing intact, clear oral mucosa, dentition normal - Neck Neck: Present: supple, normal ROM - Respiratory Respiratory effort: normal Respiratory: bilateral: CTA - Cardiovascular Rhythm: regular Heart Sounds: Present: S1 & S2. Absent: gallop, rub - Extremities Extremities: no ischemia, No edema, Full ROM - Abdominal General gastrointestinal: soft, non-tender, non-distended, normal bowel sounds - Integumentary Integumentary: Present: clear, warm, dry - Neurologic Neurologic: CNII-XII intact, moves all extremities - Constitutional Vitals: Temp Pulse Resp BP Pulse Ox 97.7 F 60 18 141/55 99 01/19/18 09:47 01/19/18 14:36 01/19/18 09:47 01/19/18 14:36 01/19/18 12:02 General appearance: Present: no acute distress, well-nourished Results - Labs CBC & Chem 7: 01/18/18 05:55 01/19/18 06:56 Labs: Laboratory Last Values WBC 5.7 K/mm3 (4.5-11.0) 01/18/18 05:55 RBC 3.35 M/mm3 (3.65-5.03) L 01/18/18 05:55 Hgb 9.2 gm/dl (11.8-15.2) L 01/18/18 05:55 Hct 29.0 % (35.5-45.6) L 01/18/18 05:55 MCV 87 fl (84-94) 01/18/18 05:55 MCH 27 pg (28-32) L 01/18/18 05:55 MCHC 32 % (32-34) 01/18/18 05:55 RDW 16.8 % (13.2-15.2) H 01/18/18 05:55 Plt Count 166 K/mm3 (140-440) 01/18/18 05:55 Lymph % (Auto) 9.3 % (13.4-35.0) L 01/18/18 05:55 [place] % (Auto) 8.7 % (0.0-7.3) H 01/18/18 05:55 Eos % (Auto) 5.3 % (0.0-4.3) H 01/18/18 05:55 Baso % (Auto) 0.4 % (0.0-1.8) 01/18/18 05:55 Lymph # 0.5 K/mm3 (1.2-5.4) L 01/18/18 05:55 [place] # 0.5 K/mm3 (0.0-0.8) 01/18/18 05:55 Eos # 0.3 K/mm3 (0.0-0.4) 01/18/18 05:55 Baso # 0.0 K/mm3 (0.0-0.1) 01/18/18 05:55 Seg Neutrophils % 76.3 % (40.0-70.0) H 01/18/18 05:55 Seg Neutrophils # 4.4 K/mm3 (1.8-7.7) 01/18/18 05:55 PT 15.3 Sec. (12.2-14.9) H 01/16/18 00:34 INR 1.15 (0.87-1.13) H 01/16/18 00:34 APTT 37.4 Sec. (24.2-36.6) H 01/16/18 00:34 Sodium 136 mmol/L (137-145) L 01/19/18 06:56 Potassium 4.0 mmol/L (3.6-5.0) 01/19/18 06:56 Chloride 95.6 mmol/L (98-107) L 01/19/18 06:56 Carbon Dioxide 25 mmol/L (22-30) 01/19/18 06:56 Anion Gap 19 mmol/L 01/19/18 06:56 BUN 52 mg/dL (9-20) H 01/19/18 06:56 Creatinine 3.0 mg/dL (0.8-1.5) H 01/19/18 06:56 Estimated GFR 21 ml/min 01/19/18 06:56 BUN/Creatinine Ratio 17 % 01/19/18 06:56 Glucose 71 mg/dL (75-100) L 01/19/18 06:56 POC Glucose 130 (70-105) H 01/19/18 12:12 Calcium 8.2 mg/dL (8.4-10.2) L 01/19/18 06:56 Total Bilirubin 1.10 mg/dL (0.1-1.2) 01/15/18 17:14 AST 12 units/L (5-40) 01/15/18 17:14 ALT 12 units/L (7-56) 01/15/18 17:14 Alkaline Phosphatase 107 units/L (35-129) 01/15/18 17:14 Total Creatine Kinase 115 units/L (55-170) 01/19/18 06:56 Troponin T 0.124 ng/mL (0.00-0.029) H* 01/16/18 13:52 NT-Pro-B Natriuret Pep 6509 pg/mL (0-900) H 01/16/18 00:34 Total Protein 6.7 g/dL (6.3-8.2) 01/15/18 17:14 Albumin 3.9 g/dL (3.9-5) 01/15/18 17:14 Albumin/Globulin Ratio 1.4 % 01/15/18 17:14 Triglycerides 89 mg/dL (2-149) 01/16/18 00:34 Cholesterol 102 mg/dL (50-199) 01/16/18 00:34 LDL Cholesterol Direct 57 mg/dL (50-130) 01/16/18 00:34 HDL Cholesterol 32 mg/dL (40-59) L 01/16/18 00:34 Cholesterol/HDL Ratio 3.18 % 01/16/18 00:34 Urine Color Yellow (Yellow) 01/17/18 11:34 Urine Turbidity Clear (Clear) 01/17/18 11:34 Urine pH 5.0 (5.0-7.0) 01/17/18 11:34 Ur Specific [place] 1.013 (1.003-1.030) 01/17/18 11:34 Urine Protein 100 mg/dl mg/dL (Negative) 01/17/18 11:34 Urine Glucose (UA) 50 mg/dL (Negative) 01/17/18 11:34 Urine Ketones Neg mg/dL (Negative) 01/17/18 11:34 Urine Blood Sm (Negative) 01/17/18 11:34 Urine Nitrite Neg (Negative) 01/17/18 11:34 Urine Bilirubin Neg (Negative) 01/17/18 11:34 Urine Urobilinogen < 2.0 mg/dL (<2.0) 01/17/18 11:34 Ur Leukocyte Esterase Neg (Negative) 01/17/18 11:34 Urine WBC (Auto) 1.0 /HPF (0.0-6.0) 01/17/18 11:34 Urine RBC (Auto) 3.0 /HPF (0.0-6.0) 01/17/18 11:34 U Epithel Cells (Auto) < 1.0 /HPF (0-13.0) 01/17/18 11:34 Urine Bacteria (Auto) 1+ /HPF (Negative) 01/17/18 11:34 Urine Creatinine 151.2 mg/dL (0.1-20.0) H 01/17/18 14:55 Protein/Creatinin Ratio 0.86 01/17/18 14:55 Urine Sodium 35 mmol/L 01/17/18 14:55 Urine Total Protein 130 mg/dL (5-11.8) H 01/17/18 14:55
[2018-01-19] MEDS: APRESOLINE PO SCH (22:26)
[2018-01-19] MEDS: LASIX 100 MG in NACL 0.9% 90 ML IV SCH (22:28)
[2018-01-20] MEDS: NORMODYNE PO SCH ×3 (06:31→23:40)
[2018-01-20] MEDS: APRESOLINE PO SCH (06:31)
[2018-01-20] MEDS: LASIX 100 MG in NACL 0.9% 90 ML IV SCH (07:45)
[2018-01-20] MEDS: CATAPRES PO SCH ×3 (08:12→21:23)
[2018-01-20] MEDS ORDERED: HumuLIN R SUB-Q NR (08:30)
[2018-01-20 08:51] LABS: Hematocrit 29.1 % (35.5-45.6); Hemoglobin 9.4 gm/dl (11.8-15.2); Mean Corpuscular HGB Conc 33 % (32-34); Mean Corpuscular Hemoglobin 28 pg (28-32); Mean Corpuscular Volume 85 fl (84-94); Platelet Count 154 K/mm3 (140-440); Red Blood Count 3.43 M/mm3 (3.65-5.03); Red Cell Distribution Width 16.6 % (13.2-15.2)
[2018-01-20 08:58] LABS: Calcium 8.5 mg/dL (8.4-10.2)
--- NOTE | 2018-01-20 09:12 | Progress Note ---
Assessment and Plan 1. Acute kidney injury: SAMUEL superimposed on CKD stage 3 likely hemodynamically mediated in the CHF exacerbation +/- diuresis. Creatinine level is increasing. Will stop Lasix drip. Renal US results noted. Monitor renal function. 2. Volume overload: Secondary to CHF exacerbation. Overall the volume status is better. Strict I/Os. 3. CKD stage 3. Secondary to Diabetic Nephropathy. 4. Anemia. Subjective Date of service: 01/20/18 Interval history: Patient is feeling ok. Leg swelling is getting better. Objective - Vital Signs Vital signs: Vital Signs - 12hr 01/19/18 01/19/18 01/19/18 21:45 22:14 22:26 Temperature Pulse Rate 64 64 64 Respiratory Rate Blood Pressure 151/56 151/56 151/56 O2 Sat by Pulse Oximetry 01/19/18 01/20/18 01/20/18 23:46 04:22 05:00 Temperature 97.4 F L 97.9 F Pulse Rate 63 62 62 Respiratory 17 20 Rate Blood Pressure 167/63 135/52 O2 Sat by Pulse 95 96 Oximetry 01/20/18 06:31 Temperature Pulse Rate 62 Respiratory Rate Blood Pressure 135/52 O2 Sat by Pulse Oximetry - General Appearance General appearance: well-developed, well-nourished, appears stated age, obese, other (no distress) EENT: ATNC, mucous membranes moist, hearing intact Neck: supple Respiratory: Present: Clear to Ascultation Cardiology: regular, S1S2, no murmurs Gastrointestinal: normoactive bowel sounds, no tenderness, no distended, obese Integumentary: no rash, warm and dry Neurologic: no asterixis, alert and oriented x3 Musculoskeletal: other (1+ edema of both LEs noted) Psychiatric: mood/affect appropriate, cooperative - Lab 01/20/18 07:35 01/20/18 07:35 Most recent lab results Calcium 8.5 mg/dL (8.4-10.2) 01/20/18 07:35 Magnesium 2.30 mg/dL (1.7-2.3) 01/20/18 07:35 Urine Creatinine 151.2 mg/dL (0.1-20.0) H 01/17/18 14:55 Urine Sodium 35 mmol/L 01/17/18 14:55 Urine Total Protein 130 mg/dL (5-11.8) H 01/17/18 14:55
[2018-01-20] MEDS ORDERED: COZAAR PO SCH (10:00)
--- NOTE | 2018-01-20 10:29 | Query- Renal Failure ---
Dear ____Alfie Date:____01/20/18 Infrastructure Software Engineer/CDS:___Daveani Phone#:___[phone] Exercise your independent professional judgment when responding to query. Questions asked do not imply a particular answer is desired or expected. We greatly appreciate your clarification on this issue. Clinical Documentation States: 62 year old male was admitted on 01/16/18 The hospitalist progress note (Dr. Judge 01/19/18) states " Assessment and plan: Acute on chronic kidney disease stage 3 -Nephrology following -Creatinine appears to be stable. Continue to monitor BMP. " The H&P states " Patient is a 62-year-old male with medical hx significant for CHF who presented to the ED on account of 2 weeks history of worsening bilateral leg swelling. " Clinical Findings Show: 01/15/18 01/20/18 Creatinine: 2.6 3.3 BUN/Creatinine Ratio: 20 17 Please clarify if you mean: Acute Renal Failure with or due to: [ ] Tubular Necrosis [ ] Medullary Necrosis [ x] Vasomotor Nephropathy [ ] Shock Kidney [ ] Tubular Nephrosis [ ] Renal Tubular Stasis [ ] Cortical Necrosis [ ] Acute Renal Failure (unspecified) [ ] Lower Tubular Nephrosis [ ] Other: [ ] Not Applicable Present on Admission: [x ] Yes (Y) [ ] Clinically undeterminable (W) [ ] No (N) Please also document response in your Progress Notes and/or Discharge Summary and indicate if the condition was present on admission. MTDD
--- NOTE | 2018-01-20 11:08 | Progress Note ---
Assessment and Plan Acute heart failure with a preserved ejection fraction. CKD DM Hypertension Hx of CAD s/p 4vCABG 2013 Hx of Ischemic cardiomyopathy with an improved EF EF 50-55% on echocardiogram this admission. Subjective Date of service: 01/20/18 Interval history: Creatinine continues to trend upwards. He is currently on intravenous lasix drip. Patient reports little urine output. Objective Vital Signs Temp Pulse Resp BP BP Pulse Ox 01/20/18 09:00 63 128/44 99 01/20/18 08:59 98.6 F 63 18 128/44 95 01/20/18 06:31 62 135/52 01/20/18 05:00 62 01/20/18 04:22 97.9 F 62 20 135/52 96 01/19/18 23:46 97.4 F L 63 17 167/63 95 01/19/18 22:26 64 151/56 01/19/18 22:14 64 151/56 01/19/18 21:45 64 151/56 01/19/18 21:00 64 01/19/18 19:34 97.9 F 64 18 151/56 93 01/19/18 17:50 98.3 F 57 L 18 142/51 96 01/19/18 16:22 63 97 01/19/18 14:36 60 141/55 01/19/18 12:02 62 99 - Physical Examination General: No Apparent Distress Cardiac: Positive: Reg Rate and Rhythm Lungs: Positive: Decreased Breath Sounds Neuro: Positive: Grossly Intact Extremities: Present: +1 Edema - Labs and Meds CBC 01/20/18 Range/Units 07:35 WBC 5.0 (4.5-11.0) K/mm3 RBC 3.43 L (3.65-5.03) M/mm3 Hgb 9.4 L (11.8-15.2) gm/dl Hct 29.1 L (35.5-45.6) % Plt Count 154 (140-440) K/mm3 Comprehensive Metabolic Panel 01/20/18 Range/Units 07:35 Sodium 138 (137-145) mmol/L Potassium 4.3 (3.6-5.0) mmol/L Chloride 94.6 L (98-107) mmol/L Carbon Dioxide 26 (22-30) mmol/L BUN 57 H (9-20) mg/dL Creatinine 3.3 H (0.8-1.5) mg/dL Glucose 184 H (75-100) mg/dL Calcium 8.5 (8.4-10.2) mg/dL
[2018-01-20] MEDS: HALFPRIN EC PO SCH (12:09)
[2018-01-20] MEDS: NORVASC PO SCH (12:10)
[2018-01-20] MEDS: PLAVIX PO SCH (12:10)
--- NOTE | 2018-01-20 12:10 | Ultrasound Report ---
ULTRASOUND RENAL INDICATION: Acute renal failure. COMPARISON: 12/11/2017. FINDINGS: Renal sonography suggests top normal/borderline increased renal cortical echogenicity. Grossly preserved contours. No hydronephrosis. Bilateral pleural effusions incidentally now noted. RIGHT KIDNEY measures 11.1 x 4.8 x 5.6 cm with cortical thickness of 1.6 cm. LEFT KIDNEY estimated at 11.1 x 6.3 x 5.6 cm with cortical thickness of 1.3 cm. URINARY BLADDER suboptimally distended and assessed. CONCLUSION: Small bilateral pleural effusions now noted without acute renal sonographic abnormality in this patient with underlying medical renal disease. Please correlate. Thank you for the opportunity to participate in this patient's care.
[2018-01-20] MEDS: MIRALAX 3350 PO SCH (12:11)
[2018-01-20] MEDS: HumuLIN R SUB-Q SCH ×3 (13:45→23:39)
--- NOTE | 2018-01-20 16:13 | Progress Note ---
Assessment and Plan Assessment and plan: Acute CHF exacerbation -EF 50-55% on echocardiogram this admission -Patient with elevated BNP of 6500 but chest x-ray found to be negative -Continue CHF protocol -Cardiology following Elevated troponin probably secondary to CKD 3 -Continue serial troponin level monitoring -Continue home Plavix, aspirin and lipitor. Insulin-dependent diabetes mellitus type 2 with hyperglycemia -Continue on both basal and prandial insulin regimen - adjusted meds, will give extra dose of insulin this am. Acute on chronic kidney disease stage 3 -Nephrology following -Creatinine appears to be stable. Continue to monitor BMP. Uncontrolled hypertension -Continue antihypertensives and iv hydralazine prn Chronic anemia -H/H are stable, will monitor Prophylaxis -DVT prophylaxis with SCD Discussed extensively with spouse and patient in detail. Will await renal improvement History Interval history: Patient seen and examined, no new complaints Hospitalist Physical - Physical exam Narrative exam: General appearance: Present: no acute distress, well-nourished - EENT Eyes: Present: PERRL, Legally blind ENT: hearing intact, clear oral mucosa, dentition normal - Neck Neck: Present: supple, normal ROM - Respiratory Respiratory effort: normal Respiratory: bilateral: CTA - Cardiovascular Rhythm: regular Heart Sounds: Present: S1 & S2. Absent: gallop, rub - Extremities Extremities: no ischemia, No edema, Full ROM - Abdominal General gastrointestinal: soft, non-tender, non-distended, normal bowel sounds - Integumentary Integumentary: Present: clear, warm, dry - Neurologic Neurologic: CNII-XII intact, moves all extremities - Constitutional Vitals: Temp Pulse Resp BP Pulse Ox 98.6 F 63 18 128/44 99 01/20/18 08:59 01/20/18 09:00 01/20/18 08:59 01/20/18 09:00 01/20/18 09:00 General appearance: Present: no acute distress, well-nourished Results - Labs CBC & Chem 7: 01/20/18 07:35 01/20/18 07:35 Labs: Laboratory Last Values WBC 5.0 K/mm3 (4.5-11.0) 01/20/18 07:35 RBC 3.43 M/mm3 (3.65-5.03) L 01/20/18 07:35 Hgb 9.4 gm/dl (11.8-15.2) L 01/20/18 07:35 Hct 29.1 % (35.5-45.6) L 01/20/18 07:35 MCV 85 fl (84-94) 01/20/18 07:35 MCH 28 pg (28-32) 01/20/18 07:35 MCHC 33 % (32-34) 01/20/18 07:35 RDW 16.6 % (13.2-15.2) H 01/20/18 07:35 Plt Count 154 K/mm3 (140-440) 01/20/18 07:35 Lymph % (Auto) 9.3 % (13.4-35.0) L 01/18/18 05:55 [place] % (Auto) 8.7 % (0.0-7.3) H 01/18/18 05:55 Eos % (Auto) 5.3 % (0.0-4.3) H 01/18/18 05:55 Baso % (Auto) 0.4 % (0.0-1.8) 01/18/18 05:55 Lymph # 0.5 K/mm3 (1.2-5.4) L 01/18/18 05:55 [place] # 0.5 K/mm3 (0.0-0.8) 01/18/18 05:55 Eos # 0.3 K/mm3 (0.0-0.4) 01/18/18 05:55 Baso # 0.0 K/mm3 (0.0-0.1) 01/18/18 05:55 Seg Neutrophils % 76.3 % (40.0-70.0) H 01/18/18 05:55 Seg Neutrophils # 4.4 K/mm3 (1.8-7.7) 01/18/18 05:55 PT 15.3 Sec. (12.2-14.9) H 01/16/18 00:34 INR 1.15 (0.87-1.13) H 01/16/18 00:34 APTT 37.4 Sec. (24.2-36.6) H 01/16/18 00:34 Sodium 138 mmol/L (137-145) 01/20/18 07:35 Potassium 4.3 mmol/L (3.6-5.0) 01/20/18 07:35 Chloride 94.6 mmol/L (98-107) L 01/20/18 07:35 Carbon Dioxide 26 mmol/L (22-30) 01/20/18 07:35 Anion Gap 22 mmol/L 01/20/18 07:35 BUN 57 mg/dL (9-20) H 01/20/18 07:35 Creatinine 3.3 mg/dL (0.8-1.5) H 01/20/18 07:35 Estimated GFR 19 ml/min 01/20/18 07:35 BUN/Creatinine Ratio 17 % 01/20/18 07:35 Glucose 184 mg/dL (75-100) H 01/20/18 07:35 POC Glucose 311 (70-105) H 01/20/18 12:19 Calcium 8.5 mg/dL (8.4-10.2) 01/20/18 07:35 Magnesium 2.30 mg/dL (1.7-2.3) 01/20/18 07:35 Total Bilirubin 1.10 mg/dL (0.1-1.2) 01/15/18 17:14 AST 12 units/L (5-40) 01/15/18 17:14 ALT 12 units/L (7-56) 01/15/18 17:14 Alkaline Phosphatase 107 units/L (35-129) 01/15/18 17:14 Total Creatine Kinase 115 units/L (55-170) 01/19/18 06:56 Troponin T 0.124 ng/mL (0.00-0.029) H* 01/16/18 13:52 NT-Pro-B Natriuret Pep 6509 pg/mL (0-900) H 01/16/18 00:34 Total Protein 6.7 g/dL (6.3-8.2) 01/15/18 17:14 Albumin 3.9 g/dL (3.9-5) 01/15/18 17:14 Albumin/Globulin Ratio 1.4 % 01/15/18 17:14 Triglycerides 89 mg/dL (2-149) 01/16/18 00:34 Cholesterol 102 mg/dL (50-199) 01/16/18 00:34 LDL Cholesterol Direct 57 mg/dL (50-130) 01/16/18 00:34 HDL Cholesterol 32 mg/dL (40-59) L 01/16/18 00:34 Cholesterol/HDL Ratio 3.18 % 01/16/18 00:34 Urine Color Yellow (Yellow) 01/17/18 11:34 Urine Turbidity Clear (Clear) 01/17/18 11:34 Urine pH 5.0 (5.0-7.0) 01/17/18 11:34 Ur Specific [place] 1.013 (1.003-1.030) 01/17/18 11:34 Urine Protein 100 mg/dl mg/dL (Negative) 01/17/18 11:34 Urine Glucose (UA) 50 mg/dL (Negative) 01/17/18 11:34 Urine Ketones Neg mg/dL (Negative) 01/17/18 11:34 Urine Blood Sm (Negative) 01/17/18 11:34 Urine Nitrite Neg (Negative) 01/17/18 11:34 Urine Bilirubin Neg (Negative) 01/17/18 11:34 Urine Urobilinogen < 2.0 mg/dL (<2.0) 01/17/18 11:34 Ur Leukocyte Esterase Neg (Negative) 01/17/18 11:34 Urine WBC (Auto) 1.0 /HPF (0.0-6.0) 01/17/18 11:34 Urine RBC (Auto) 3.0 /HPF (0.0-6.0) 01/17/18 11:34 U Epithel Cells (Auto) < 1.0 /HPF (0-13.0) 01/17/18 11:34 Urine Bacteria (Auto) 1+ /HPF (Negative) 01/17/18 11:34 Urine Creatinine 151.2 mg/dL (0.1-20.0) H 01/17/18 14:55 Protein/Creatinin Ratio 0.86 01/17/18 14:55 Urine Sodium 35 mmol/L 01/17/18 14:55 Urine Total Protein 130 mg/dL (5-11.8) H 01/17/18 14:55
[2018-01-20] MEDS ORDERED: LANTUS SUB-Q SCH (22:00)
[2018-01-21] MEDS: NORMODYNE PO SCH ×3 (05:56→22:55)
[2018-01-21] MEDS: HumuLIN R SUB-Q SCH ×5 (07:51→23:00)
[2018-01-21 07:56] LABS: Calcium 8.5 mg/dL (8.4-10.2)
[2018-01-21] MEDS: CATAPRES PO SCH ×3 (08:45→21:45)
--- NOTE | 2018-01-21 09:03 | Progress Note ---
Assessment and Plan 1. Acute kidney injury: SAMUEL superimposed on CKD stage 3 likely hemodynamically mediated in the CHF exacerbation +/- diuresis. Renal function continues to decline. Will stop all diuretics. Monitor renal function. Discussed in detail about the treatment plans. Also discussed about indications , benefits and value of kidney biopsy. Both patient and his want to think about it. Patient is not sure if he can maintain prone position. Will order antibodies. 2. Volume overload: Secondary to CHF exacerbation. Overall the volume status is better. Strict I/Os. 3. CKD stage 3. Secondary to Diabetic Nephropathy. 4. Anemia. Subjective Date of service: 01/21/18 Interval history: Patient is doing ok. Objective - Vital Signs Vital signs: Vital Signs - 12hr 01/20/18 01/20/18 01/20/18 21:23 22:00 23:37 Temperature Pulse Rate 61 62 Pulse Rate [ 65 Left Radial] Respiratory 18 Rate Blood Pressure 143/65 149/56 Blood Pressure [Left] O2 Sat by Pulse 98 Oximetry 01/20/18 01/21/18 01/21/18 23:40 01:17 04:06 Temperature 97.8 F Pulse Rate 62 62 61 Pulse Rate [ Left Radial] Respiratory 20 Rate Blood Pressure 149/56 155/54 Blood Pressure 149/56 [Left] O2 Sat by Pulse 95 92 Oximetry 01/21/18 01/21/18 05:56 06:25 Temperature 98.3 F Pulse Rate 61 61 Pulse Rate [ Left Radial] Respiratory 18 Rate Blood Pressure 155/54 Blood Pressure 155/56 [Left] O2 Sat by Pulse 95 Oximetry - General Appearance General appearance: well-developed, well-nourished, appears stated age, obese, other (no distress) EENT: ATNC, mucous membranes moist, hearing intact Neck: supple Respiratory: Present: Clear to Ascultation Cardiology: regular, S1S2, no murmurs Gastrointestinal: normoactive bowel sounds, no tenderness, obese Integumentary: no rash, warm and dry Neurologic: no asterixis, alert and oriented x3, other (bilateral blindness) Musculoskeletal: other (1+ edema of both LEs) Psychiatric: mood/affect appropriate, cooperative - Lab 01/20/18 07:35 01/21/18 07:04 Most recent lab results Calcium 8.5 mg/dL (8.4-10.2) 01/21/18 07:04 Magnesium 2.30 mg/dL (1.7-2.3) 01/20/18 07:35 Urine Creatinine 151.2 mg/dL (0.1-20.0) H 01/17/18 14:55 Urine Sodium 35 mmol/L 01/17/18 14:55 Urine Total Protein 130 mg/dL (5-11.8) H 01/17/18 14:55
[2018-01-21] MEDS ORDERED: LASIX PO SCH (10:00)
--- NOTE | 2018-01-21 11:12 | Progress Note ---
Assessment and Plan Acute heart failure with a preserved ejection fraction. CKD DM Hypertension Hx of CAD s/p 4vCABG 2013 Hx of Ischemic cardiomyopathy with an improved EF EF 50-55% on echocardiogram this admission. Conservative cardiac management. Subjective Date of service: 01/21/18 Interval history: Patient has no complaints. Creatinine continues to trend upwards, today, 3.6. Objective Vital Signs Temp Pulse Pulse Resp Resp BP BP 01/21/18 08:05 98.3 F 61 20 149/56 01/21/18 06:25 98.3 F 61 18 155/56 01/21/18 05:56 61 155/54 01/21/18 04:06 61 155/54 01/21/18 01:17 97.8 F 62 20 149/56 01/20/18 23:40 62 149/56 01/20/18 23:37 62 149/56 01/20/18 22:00 65 18 01/20/18 21:23 61 143/65 01/20/18 20:41 98.2 F 61 18 143/55 01/20/18 20:05 18 01/20/18 19:58 64 143/55 01/20/18 19:25 64 01/20/18 18:18 64 01/20/18 13:00 63 Pulse Ox 01/21/18 08:05 99 01/21/18 06:25 95 01/21/18 05:56 01/21/18 04:06 92 01/21/18 01:17 95 01/20/18 23:40 01/20/18 23:37 98 01/20/18 22:00 01/20/18 21:23 01/20/18 20:41 97 01/20/18 20:05 01/20/18 19:58 96 01/20/18 19:25 01/20/18 18:18 98 01/20/18 13:00 - Physical Examination General: No Apparent Distress Cardiac: Positive: Reg Rate and Rhythm Neuro: Positive: Grossly Intact Extremities: Present: +1 Edema - Labs and Meds Comprehensive Metabolic Panel 01/21/18 Range/Units 07:04 Sodium 137 (137-145) mmol/L Potassium 4.2 (3.6-5.0) mmol/L Chloride 92.8 L (98-107) mmol/L Carbon Dioxide 27 (22-30) mmol/L BUN 67 H (9-20) mg/dL Creatinine 3.6 H (0.8-1.5) mg/dL Glucose 148 H (75-100) mg/dL Calcium 8.5 (8.4-10.2) mg/dL
[2018-01-21] MEDS: PLAVIX PO SCH (11:18)
[2018-01-21] MEDS: HALFPRIN EC PO SCH (11:18)
[2018-01-21] MEDS: NORVASC PO SCH (11:21)
[2018-01-21] MEDS: MIRALAX 3350 PO SCH (11:22)
--- NOTE | 2018-01-21 16:31 | Progress Note ---
Assessment and Plan Assessment and plan: Acute CHF exacerbation -EF 50-55% on echocardiogram this admission -Patient with elevated BNP of 6500 but chest x-ray found to be negative -Continue CHF protocol. medical managment at this time. -Cardiology following Elevated troponin probably secondary to CKD 3 -Continue serial troponin level monitoring -Continue home Plavix, aspirin and lipitor. Insulin-dependent diabetes mellitus type 2 with hyperglycemia -Continue on both basal and prandial insulin regimen - adjusted meds, will give extra dose of insulin this am. Acute on chronic kidney disease stage 3 -Nephrology following -Await renal plan. Possible HD. Continue to monitor BMP. Uncontrolled hypertension -Continue antihypertensives and iv hydralazine prn Chronic anemia -H/H are stable, will monitor Prophylaxis -DVT prophylaxis with SCD Discussed extensively with spouse and patient in detail. Will await renal improvement History Interval history: Patient seen and examined, no new complaints. Sitting up by the bedside. Admitted with CHF. Hospitalist Physical - Physical exam Narrative exam: General appearance: Present: no acute distress, well-nourished - EENT Eyes: Present: PERRL, Legally blind ENT: hearing intact, clear oral mucosa, dentition normal - Neck Neck: Present: supple, normal ROM - Respiratory Respiratory effort: normal Respiratory: bilateral: CTA - Cardiovascular Rhythm: regular Heart Sounds: Present: S1 & S2. Absent: gallop, rub - Extremities Extremities: no ischemia, No edema, Full ROM - Abdominal General gastrointestinal: soft, non-tender, non-distended, normal bowel sounds - Integumentary Integumentary: Present: clear, warm, dry - Neurologic Neurologic: CNII-XII intact, moves all extremities - Constitutional Vitals: Temp Pulse Resp BP Pulse Ox 98.0 F 66 20 159/59 97 01/21/18 13:06 01/21/18 13:06 01/21/18 13:06 01/21/18 13:06 01/21/18 13:06 General appearance: Present: no acute distress, well-nourished Results - Labs CBC & Chem 7: 01/20/18 07:35 01/21/18 07:04 Labs: Laboratory Last Values WBC 5.0 K/mm3 (4.5-11.0) 01/20/18 07:35 RBC 3.43 M/mm3 (3.65-5.03) L 01/20/18 07:35 Hgb 9.4 gm/dl (11.8-15.2) L 01/20/18 07:35 Hct 29.1 % (35.5-45.6) L 01/20/18 07:35 MCV 85 fl (84-94) 01/20/18 07:35 MCH 28 pg (28-32) 01/20/18 07:35 MCHC 33 % (32-34) 01/20/18 07:35 RDW 16.6 % (13.2-15.2) H 01/20/18 07:35 Plt Count 154 K/mm3 (140-440) 01/20/18 07:35 Lymph % (Auto) 9.3 % (13.4-35.0) L 01/18/18 05:55 [place] % (Auto) 8.7 % (0.0-7.3) H 01/18/18 05:55 Eos % (Auto) 5.3 % (0.0-4.3) H 01/18/18 05:55 Baso % (Auto) 0.4 % (0.0-1.8) 01/18/18 05:55 Lymph # 0.5 K/mm3 (1.2-5.4) L 01/18/18 05:55 [place] # 0.5 K/mm3 (0.0-0.8) 01/18/18 05:55 Eos # 0.3 K/mm3 (0.0-0.4) 01/18/18 05:55 Baso # 0.0 K/mm3 (0.0-0.1) 01/18/18 05:55 Seg Neutrophils % 76.3 % (40.0-70.0) H 01/18/18 05:55 Seg Neutrophils # 4.4 K/mm3 (1.8-7.7) 01/18/18 05:55 PT 15.3 Sec. (12.2-14.9) H 01/16/18 00:34 INR 1.15 (0.87-1.13) H 01/16/18 00:34 APTT 37.4 Sec. (24.2-36.6) H 01/16/18 00:34 Sodium 137 mmol/L (137-145) 01/21/18 07:04 Potassium 4.2 mmol/L (3.6-5.0) 01/21/18 07:04 Chloride 92.8 mmol/L (98-107) L 01/21/18 07:04 Carbon Dioxide 27 mmol/L (22-30) 01/21/18 07:04 Anion Gap 21 mmol/L 01/21/18 07:04 BUN 67 mg/dL (9-20) H 01/21/18 07:04 Creatinine 3.6 mg/dL (0.8-1.5) H 01/21/18 07:04 Estimated GFR 17 ml/min 01/21/18 07:04 BUN/Creatinine Ratio 19 % 01/21/18 07:04 Glucose 148 mg/dL (75-100) H 01/21/18 07:04 POC Glucose 268 (70-105) H 01/21/18 12:23 Calcium 8.5 mg/dL (8.4-10.2) 01/21/18 07:04 Magnesium 2.30 mg/dL (1.7-2.3) 01/20/18 07:35 Total Bilirubin 1.10 mg/dL (0.1-1.2) 01/15/18 17:14 AST 12 units/L (5-40) 01/15/18 17:14 ALT 12 units/L (7-56) 01/15/18 17:14 Alkaline Phosphatase 107 units/L (35-129) 01/15/18 17:14 Total Creatine Kinase 115 units/L (55-170) 01/19/18 06:56 Troponin T 0.124 ng/mL (0.00-0.029) H* 01/16/18 13:52 NT-Pro-B Natriuret Pep 6509 pg/mL (0-900) H 01/16/18 00:34 Total Protein 6.7 g/dL (6.3-8.2) 01/15/18 17:14 Albumin 3.9 g/dL (3.9-5) 01/15/18 17:14 Albumin/Globulin Ratio 1.4 % 01/15/18 17:14 Triglycerides 89 mg/dL (2-149) 01/16/18 00:34 Cholesterol 102 mg/dL (50-199) 01/16/18 00:34 LDL Cholesterol Direct 57 mg/dL (50-130) 01/16/18 00:34 HDL Cholesterol 32 mg/dL (40-59) L 01/16/18 00:34 Cholesterol/HDL Ratio 3.18 % 01/16/18 00:34 Urine Color Yellow (Yellow) 01/17/18 11:34 Urine Turbidity Clear (Clear) 01/17/18 11:34 Urine pH 5.0 (5.0-7.0) 01/17/18 11:34 Ur Specific [place] 1.013 (1.003-1.030) 01/17/18 11:34 Urine Protein 100 mg/dl mg/dL (Negative) 01/17/18 11:34 Urine Glucose (UA) 50 mg/dL (Negative) 01/17/18 11:34 Urine Ketones Neg mg/dL (Negative) 01/17/18 11:34 Urine Blood Sm (Negative) 01/17/18 11:34 Urine Nitrite Neg (Negative) 01/17/18 11:34 Urine Bilirubin Neg (Negative) 01/17/18 11:34 Urine Urobilinogen < 2.0 mg/dL (<2.0) 01/17/18 11:34 Ur Leukocyte Esterase Neg (Negative) 01/17/18 11:34 Urine WBC (Auto) 1.0 /HPF (0.0-6.0) 01/17/18 11:34 Urine RBC (Auto) 3.0 /HPF (0.0-6.0) 01/17/18 11:34 U Epithel Cells (Auto) < 1.0 /HPF (0-13.0) 01/17/18 11:34 Urine Bacteria (Auto) 1+ /HPF (Negative) 01/17/18 11:34 Urine Creatinine 151.2 mg/dL (0.1-20.0) H 01/17/18 14:55 Protein/Creatinin Ratio 0.86 01/17/18 14:55 Urine Sodium 35 mmol/L 01/17/18 14:55 Urine Total Protein 130 mg/dL (5-11.8) H 01/17/18 14:55
[2018-01-21] MEDS: LANTUS SUB-Q SCH (23:00)
[2018-01-22] MEDS: NORMODYNE PO SCH ×3 (06:38→21:54)
[2018-01-22 06:53] LABS: Basophils % (Auto) 0.4 % (0.0-1.8); Eosinophils # (Auto) 0.3 K/mm3 (0.0-0.4); Eosinophils % (Auto) 6.3 % (0.0-4.3); Hematocrit 27.4 % (35.5-45.6); Hemoglobin 9.1 gm/dl (11.8-15.2); Lymphocytes # (Auto) 0.5 K/mm3 (1.2-5.4); Lymphocytes % (Auto) 10.6 % (13.4-35.0); Mean Corpuscular HGB Conc 33 % (32-34); Mean Corpuscular Hemoglobin 28 pg (28-32); Mean Corpuscular Volume 83 fl (84-94); Monocytes # (Auto) 0.5 K/mm3 (0.0-0.8); Monocytes % (Auto) 10.9 % (0.0-7.3); Platelet Count 161 K/mm3 (140-440); Red Blood Count 3.29 M/mm3 (3.65-5.03); Red Cell Distribution Width 16.3 % (13.2-15.2)
[2018-01-22 07:14] LABS: Calcium 8.4 mg/dL (8.4-10.2)
[2018-01-22] MEDS: HumuLIN R SUB-Q SCH ×5 (07:57→21:55)
[2018-01-22] MEDS: CATAPRES PO SCH ×3 (08:20→21:55)
[2018-01-22] MEDS: HALFPRIN EC PO SCH (10:27)
[2018-01-22] MEDS: MIRALAX 3350 PO SCH (10:27)
[2018-01-22] MEDS: PLAVIX PO SCH (10:27)
[2018-01-22] MEDS: NORVASC PO SCH (10:27)
--- NOTE | 2018-01-22 11:28 | Progress Note ---
Assessment and Plan 1. Acute kidney injury: SAMUEL superimposed on CKD stage 3 likely hemodynamically mediated in the CHF exacerbation +/- diuresis. Renal function has leveled off. Hold diuretics. Monitor renal function. Patient and family doesn't want to do kidney biopsy. 2. Volume overload: Secondary to CHF exacerbation. Strict I/Os. 3. CKD stage 3. Secondary to Diabetic Nephropathy. 4. Anemia. Subjective Date of service: 01/22/18 Interval history: Patient is doing ok. Objective - Vital Signs Vital signs: Vital Signs - 12hr 01/22/18 01/22/18 01/22/18 05:00 05:19 06:38 Temperature 98.4 F Pulse Rate 63 62 63 Respiratory 20 Rate Blood Pressure 163/62 Blood Pressure 163/62 [Left] O2 Sat by Pulse 96 Oximetry 01/22/18 01/22/18 08:05 08:20 Temperature 98.6 F Pulse Rate Respiratory 18 Rate Blood Pressure 156/49 162/69 Blood Pressure [Left] O2 Sat by Pulse Oximetry - General Appearance General appearance: well-developed, well-nourished, appears stated age, obese, other (no distress) EENT: ATNC, hearing intact Neck: supple Respiratory: Present: Rales (bibasal, faint) Cardiology: regular, S1S2, no murmurs Gastrointestinal: normoactive bowel sounds, no tenderness, no distended, obese Integumentary: no rash, warm and dry Neurologic: no asterixis, alert and oriented x3, other (bilateral blindness) Musculoskeletal: other (1+ edema of both LEs noted) Psychiatric: mood/affect appropriate, cooperative - Lab 01/22/18 05:46 01/22/18 05:46 Most recent lab results Calcium 8.4 mg/dL (8.4-10.2) 01/22/18 05:46 Magnesium 2.30 mg/dL (1.7-2.3) 01/20/18 07:35 Urine Creatinine 151.2 mg/dL (0.1-20.0) H 01/17/18 14:55 Urine Sodium 35 mmol/L 01/17/18 14:55 Urine Total Protein 130 mg/dL (5-11.8) H 01/17/18 14:55
--- NOTE | 2018-01-22 11:30 | Progress Note ---
Assessment and Plan Acute heart failure with a preserved ejection fraction. CKD DM Hypertension Hx of CAD s/p [id number] 2013 Hx of Ischemic cardiomyopathy with an improved EF EF 50-55% on echocardiogram this admission. Recommendations: Continue medical therapy for heart failure with a preserved EF. Otherwise, conservative cardiac management. Subjective Date of service: 01/22/18 Interval history: Patient has no complaints. Objective Vital Signs Temp Pulse Pulse Resp BP BP Pulse Ox 01/22/18 08:20 162/69 01/22/18 08:05 98.6 F 18 156/49 01/22/18 06:38 63 163/62 01/22/18 05:19 98.4 F 62 20 163/62 96 01/22/18 05:00 63 01/21/18 22:55 64 121/68 01/21/18 22:46 98.0 F 65 20 167/61 98 01/21/18 22:00 64 95 01/21/18 21:45 64 121/68 01/21/18 21:00 54 L 01/21/18 19:15 45 L 121/68 81 L 01/21/18 19:08 98.3 F 64 20 151/56 95 01/21/18 16:03 98.2 F 68 18 166/61 95 01/21/18 13:06 98.0 F 66 20 159/59 97 - Physical Examination General: No Apparent Distress Cardiac: Positive: Reg Rate and Rhythm Lungs: Positive: Decreased Breath Sounds Neuro: Positive: Grossly Intact Extremities: Present: +2 Edema - Labs and Meds CBC 01/22/18 Range/Units 05:46 WBC 4.8 (4.5-11.0) K/mm3 RBC 3.29 L (3.65-5.03) M/mm3 Hgb 9.1 L (11.8-15.2) gm/dl Hct 27.4 L (35.5-45.6) % Plt Count 161 (140-440) K/mm3 Lymph # 0.5 L (1.2-5.4) K/mm3 [place] # 0.5 (0.0-0.8) K/mm3 Eos # 0.3 (0.0-0.4) K/mm3 Baso # 0.0 (0.0-0.1) K/mm3 Comprehensive Metabolic Panel 01/22/18 Range/Units 05:46 Sodium 136 L (137-145) mmol/L Potassium 3.8 (3.6-5.0) mmol/L Chloride 92.1 L (98-107) mmol/L Carbon Dioxide 29 (22-30) mmol/L BUN 65 H (9-20) mg/dL Creatinine 3.6 H (0.8-1.5) mg/dL Glucose 91 (75-100) mg/dL Calcium 8.4 (8.4-10.2) mg/dL
[2018-01-22] MEDS: LANTUS SUB-Q SCH (21:56)
[2018-01-22] MEDS: APRESOLINE PO SCH (22:02)
--- NOTE | 2018-01-22 23:23 | Progress Note ---
Assessment and Plan Assessment and plan: Acute CHF exacerbation -EF 50-55% on echocardiogram this admission -Patient with elevated BNP of 6500 but chest x-ray found to be negative -Continue CHF protocol. medical managment at this time. -Cardiology following Elevated troponin probably secondary to CKD 3 -Continue serial troponin level monitoring -Continue home Plavix, aspirin and lipitor. Insulin-dependent diabetes mellitus type 2 with hyperglycemia -Continue on both basal and prandial insulin regimen - adjusted meds, will give extra dose of insulin this am. Acute on chronic kidney disease stage 3 -Nephrology following -Renal function improving. Possible HD. Continue to monitor BMP. Uncontrolled hypertension -Continue antihypertensives and iv hydralazine prn Chronic anemia -H/H are stable, will monitor Prophylaxis -DVT prophylaxis with SCD Discussed extensively with spouse and patient in detail. Will await renal improvement History Interval history: Patient seen and examined, no new complaints. Admitted with CHF. Hospitalist Physical - Physical exam Narrative exam: General appearance: Present: no acute distress, well-nourished - EENT Eyes: Present: PERRL, Legally blind ENT: hearing intact, clear oral mucosa, dentition normal - Neck Neck: Present: supple, normal ROM - Respiratory Respiratory effort: normal Respiratory: bilateral: CTA - Cardiovascular Rhythm: regular Heart Sounds: Present: S1 & S2. Absent: gallop, rub - Extremities Extremities: no ischemia, No edema, Full ROM - Abdominal General gastrointestinal: soft, non-tender, non-distended, normal bowel sounds - Integumentary Integumentary: Present: clear, warm, dry - Neurologic Neurologic: CNII-XII intact, moves all extremities - Constitutional Vitals: Temp Pulse Resp BP Pulse Ox 97.6 F 61 18 140/54 96 01/22/18 19:25 01/22/18 21:55 01/22/18 20:34 01/22/18 21:55 01/22/18 20:34 General appearance: Present: no acute distress, well-nourished Results - Labs CBC & Chem 7: 01/22/18 05:46 01/22/18 05:46 Labs: Laboratory Last Values WBC 4.8 K/mm3 (4.5-11.0) 01/22/18 05:46 RBC 3.29 M/mm3 (3.65-5.03) L 01/22/18 05:46 Hgb 9.1 gm/dl (11.8-15.2) L 01/22/18 05:46 Hct 27.4 % (35.5-45.6) L 01/22/18 05:46 MCV 83 fl (84-94) L 01/22/18 05:46 MCH 28 pg (28-32) 01/22/18 05:46 MCHC 33 % (32-34) 01/22/18 05:46 RDW 16.3 % (13.2-15.2) H 01/22/18 05:46 Plt Count 161 K/mm3 (140-440) 01/22/18 05:46 Lymph % (Auto) 10.6 % (13.4-35.0) L 01/22/18 05:46 [place] % (Auto) 10.9 % (0.0-7.3) H 01/22/18 05:46 Eos % (Auto) 6.3 % (0.0-4.3) H 01/22/18 05:46 Baso % (Auto) 0.4 % (0.0-1.8) 01/22/18 05:46 Lymph # 0.5 K/mm3 (1.2-5.4) L 01/22/18 05:46 [place] # 0.5 K/mm3 (0.0-0.8) 01/22/18 05:46 Eos # 0.3 K/mm3 (0.0-0.4) 01/22/18 05:46 Baso # 0.0 K/mm3 (0.0-0.1) 01/22/18 05:46 Seg Neutrophils % 71.8 % (40.0-70.0) H 01/22/18 05:46 Seg Neutrophils # 3.5 K/mm3 (1.8-7.7) 01/22/18 05:46 PT 15.3 Sec. (12.2-14.9) H 01/16/18 00:34 INR 1.15 (0.87-1.13) H 01/16/18 00:34 APTT 37.4 Sec. (24.2-36.6) H 01/16/18 00:34 Sodium 136 mmol/L (137-145) L 01/22/18 05:46 Potassium 3.8 mmol/L (3.6-5.0) 01/22/18 05:46 Chloride 92.1 mmol/L (98-107) L 01/22/18 05:46 Carbon Dioxide 29 mmol/L (22-30) 01/22/18 05:46 Anion Gap 19 mmol/L 01/22/18 05:46 BUN 65 mg/dL (9-20) H 01/22/18 05:46 Creatinine 3.6 mg/dL (0.8-1.5) H 01/22/18 05:46 Estimated GFR 17 ml/min 01/22/18 05:46 BUN/Creatinine Ratio 18 % 01/22/18 05:46 Glucose 91 mg/dL (75-100) 01/22/18 05:46 POC Glucose 334 (70-105) H 01/22/18 21:56 Calcium 8.4 mg/dL (8.4-10.2) 01/22/18 05:46 Magnesium 2.30 mg/dL (1.7-2.3) 01/20/18 07:35 Total Bilirubin 1.10 mg/dL (0.1-1.2) 01/15/18 17:14 AST 12 units/L (5-40) 01/15/18 17:14 ALT 12 units/L (7-56) 01/15/18 17:14 Alkaline Phosphatase 107 units/L (35-129) 01/15/18 17:14 Total Creatine Kinase 78 units/L (55-170) 01/22/18 05:46 Troponin T 0.124 ng/mL (0.00-0.029) H* 01/16/18 13:52 NT-Pro-B Natriuret Pep 6509 pg/mL (0-900) H 01/16/18 00:34 Total Protein 6.7 g/dL (6.3-8.2) 01/15/18 17:14 Albumin 3.9 g/dL (3.9-5) 01/15/18 17:14 Albumin/Globulin Ratio 1.4 % 01/15/18 17:14 Triglycerides 89 mg/dL (2-149) 01/16/18 00:34 Cholesterol 102 mg/dL (50-199) 01/16/18 00:34 LDL Cholesterol Direct 57 mg/dL (50-130) 01/16/18 00:34 HDL Cholesterol 32 mg/dL (40-59) L 01/16/18 00:34 Cholesterol/HDL Ratio 3.18 % 01/16/18 00:34 Urine Color Yellow (Yellow) 01/17/18 11:34 Urine Turbidity Clear (Clear) 01/17/18 11:34 Urine pH 5.0 (5.0-7.0) 01/17/18 11:34 Ur Specific [place] 1.013 (1.003-1.030) 01/17/18 11:34 Urine Protein 100 mg/dl mg/dL (Negative) 01/17/18 11:34 Urine Glucose (UA) 50 mg/dL (Negative) 01/17/18 11:34 Urine Ketones Neg mg/dL (Negative) 01/17/18 11:34 Urine Blood Sm (Negative) 01/17/18 11:34 Urine Nitrite Neg (Negative) 01/17/18 11:34 Urine Bilirubin Neg (Negative) 01/17/18 11:34 Urine Urobilinogen < 2.0 mg/dL (<2.0) 01/17/18 11:34 Ur Leukocyte Esterase Neg (Negative) 01/17/18 11:34 Urine WBC (Auto) 1.0 /HPF (0.0-6.0) 01/17/18 11:34 Urine RBC (Auto) 3.0 /HPF (0.0-6.0) 01/17/18 11:34 U Epithel Cells (Auto) < 1.0 /HPF (0-13.0) 01/17/18 11:34 Urine Bacteria (Auto) 1+ /HPF (Negative) 01/17/18 11:34 Urine Creatinine 151.2 mg/dL (0.1-20.0) H 01/17/18 14:55 Protein/Creatinin Ratio 0.86 01/17/18 14:55 Urine Sodium 35 mmol/L 01/17/18 14:55 Urine Total Protein 130 mg/dL (5-11.8) H 01/17/18 14:55
[2018-01-23] MEDS: NORMODYNE PO SCH ×3 (05:48→21:09)
[2018-01-23 05:52] LABS: Hematocrit 28.1 % (35.5-45.6); Mean Corpuscular HGB Conc 32 % (32-34); Mean Corpuscular Hemoglobin 27 pg (28-32); Mean Corpuscular Volume 84 fl (84-94); Platelet Count 157 K/mm3 (140-440); Red Blood Count 3.34 M/mm3 (3.65-5.03)
[2018-01-23 06:06] LABS: Calcium 8.3 mg/dL (8.4-10.2)
--- NOTE | 2018-01-23 07:50 | Progress Note ---
Assessment and Plan 1. Acute kidney injury: SAMUEL superimposed on CKD stage 3 likely hemodynamically mediated in the CHF exacerbation +/- diuresis. Creatinine level has plauteaued. Monitor renal function. 2. Volume overload: Secondary to CHF exacerbation. Strict I/Os. 3. CKD stage 3. Secondary to Diabetic Nephropathy. 4. Anemia. Subjective Date of service: 01/23/18 Interval history: Patient is doing ok. Objective - Vital Signs Vital signs: Vital Signs - 12hr 01/22/18 01/22/18 01/22/18 20:33 20:34 21:54 Temperature Pulse Rate 61 Respiratory 18 Rate Respiratory 18 Rate [ Generalized] Blood Pressure 140/54 Blood Pressure [Left] O2 Sat by Pulse 96 Oximetry 01/22/18 01/22/18 01/23/18 21:55 23:15 04:52 Temperature 97.6 F 97.7 F Pulse Rate 61 60 63 Respiratory 20 20 Rate Respiratory Rate [ Generalized] Blood Pressure 140/54 135/44 Blood Pressure 151/55 [Left] O2 Sat by Pulse 95 95 Oximetry 01/23/18 05:48 Temperature Pulse Rate 63 Respiratory Rate Respiratory Rate [ Generalized] Blood Pressure 135/44 Blood Pressure [Left] O2 Sat by Pulse Oximetry - General Appearance General appearance: well-developed, well-nourished, appears stated age, obese, other (no distress) EENT: ATNC, hearing intact Neck: supple Respiratory: Present: Clear to Ascultation Cardiology: regular, S1S2, no murmurs Gastrointestinal: normoactive bowel sounds, no tenderness, no distended Integumentary: no rash, warm and dry Neurologic: no asterixis, alert and oriented x3, other (bilateral blindness) Musculoskeletal: other (1+ edema of both LEs noted) Psychiatric: mood/affect appropriate, cooperative - Lab 01/23/18 05:32 01/24/18 08:13 Most recent lab results Calcium 8.3 mg/dL (8.4-10.2) L 01/23/18 05:32 Magnesium 2.30 mg/dL (1.7-2.3) 01/20/18 07:35 Urine Creatinine 151.2 mg/dL (0.1-20.0) H 01/17/18 14:55 Urine Sodium 35 mmol/L 01/17/18 14:55 Urine Total Protein 130 mg/dL (5-11.8) H 01/17/18 14:55
[2018-01-23] MEDS: HumuLIN R SUB-Q SCH ×4 (08:00→21:01)
[2018-01-23] MEDS: NORVASC PO SCH (10:27)
[2018-01-23] MEDS: CATAPRES PO SCH ×3 (10:28→21:08)
[2018-01-23] MEDS: HALFPRIN EC PO SCH (10:29)
[2018-01-23] MEDS: PLAVIX PO SCH (10:29)
[2018-01-23] MEDS: MIRALAX 3350 PO SCH (10:29)
--- NOTE | 2018-01-23 11:54 | Progress Note ---
Assessment and Plan - Patient Problems (1) Diastolic CHF Current Visit: Yes Status: Acute Plan to address problem: Continue medical therapy for heart failure with preserved ejection fraction. Subjective Date of service: 01/23/18 Interval history: Patient is comfortable, in no acute distress. No new cardiac complaints. Objective Vital Signs Temp Pulse Resp Resp BP BP Pulse Ox 01/23/18 10:28 64 140/58 01/23/18 10:27 64 140/58 01/23/18 10:00 68 20 20 01/23/18 08:08 98.3 F 65 14 159/54 96 01/23/18 05:48 63 135/44 01/23/18 04:52 97.7 F 63 20 135/44 95 01/22/18 23:15 97.6 F 60 20 151/55 95 01/22/18 21:55 61 140/54 01/22/18 21:54 61 140/54 01/22/18 20:34 18 96 01/22/18 20:33 18 01/22/18 19:28 61 01/22/18 19:25 97.6 F 61 20 140/45 95 01/22/18 16:08 63 161/60 98 01/22/18 13:00 64 - Physical Examination General: No Apparent Distress Neck: Positive: neck supple, trachea midline Cardiac: Positive: Reg Rate and Rhythm Lungs: Positive: Decreased Breath Sounds Neuro: Positive: Grossly Intact Skin: Positive: Clear Extremities: Present: +1 Edema - Labs and Meds CBC 01/23/18 Range/Units 05:32 WBC 5.1 (4.5-11.0) K/mm3 RBC 3.34 L (3.65-5.03) M/mm3 Hgb 9.0 L (11.8-15.2) gm/dl Hct 28.1 L (35.5-45.6) % Plt Count 157 (140-440) K/mm3 Comprehensive Metabolic Panel 01/23/18 Range/Units 05:32 Sodium 135 L (137-145) mmol/L Potassium 4.1 (3.6-5.0) mmol/L Chloride 93.2 L (98-107) mmol/L Carbon Dioxide 28 (22-30) mmol/L BUN 70 H (9-20) mg/dL Creatinine 3.5 H (0.8-1.5) mg/dL Glucose 182 H (75-100) mg/dL Calcium 8.3 L (8.4-10.2) mg/dL
--- NOTE | 2018-01-23 12:23 | Progress Note ---
Assessment and Plan Assessment and plan: Acute CHF exacerbation -EF 50-55% on echocardiogram this admission -Patient with elevated BNP of 6500 but chest x-ray found to be negative -Continue CHF protocol. medical managment at this time. -Cardiology following lasix was held due to renal function. Monitor. Elevated troponin probably secondary to CKD 3 -Continue serial troponin level monitoring -Continue home Plavix, aspirin and lipitor. Insulin-dependent diabetes mellitus type 2 with hyperglycemia -Continue on both basal and prandial insulin regimen - adjusted meds, Better controlled. Acute on chronic kidney disease stage 3 -Nephrology following -Renal function improving. Possible HD. Continue to monitor BMP. Uncontrolled hypertension -Continue antihypertensives and iv hydralazine prn Chronic anemia -H/H are stable, will monitor Prophylaxis -DVT prophylaxis with SCD Discussed extensively with spouse and patient in detail. Will await renal improvement History Interval history: Patient seen and examined, no new complaints, Resting comfortable. Admitted with CHF. Hospitalist Physical - Physical exam Narrative exam: General appearance: Present: no acute distress, well-nourished - EENT Eyes: Present: PERRL, Legally blind ENT: hearing intact, clear oral mucosa, dentition normal - Neck Neck: Present: supple, normal ROM - Respiratory Respiratory effort: normal Respiratory: bilateral: CTA - Cardiovascular Rhythm: regular Heart Sounds: Present: S1 & S2. Absent: gallop, rub - Extremities Extremities: no ischemia, +2 edema, Full ROM - Abdominal General gastrointestinal: soft, non-tender, non-distended, normal bowel sounds - Integumentary Integumentary: Present: clear, warm, edema +2 - Neurologic Neurologic: CNII-XII intact, moves all extremities - Constitutional Vitals: Temp Pulse Resp BP Pulse Ox 98.3 F 64 20 140/58 96 01/23/18 08:08 01/23/18 10:28 01/23/18 10:00 01/23/18 10:28 01/23/18 08:08 General appearance: Present: no acute distress, well-nourished Results - Labs CBC & Chem 7: 01/23/18 05:32 01/23/18 05:32 Labs: Laboratory Last Values WBC 5.1 K/mm3 (4.5-11.0) 01/23/18 05:32 RBC 3.34 M/mm3 (3.65-5.03) L 01/23/18 05:32 Hgb 9.0 gm/dl (11.8-15.2) L 01/23/18 05:32 Hct 28.1 % (35.5-45.6) L 01/23/18 05:32 MCV 84 fl (84-94) 01/23/18 05:32 MCH 27 pg (28-32) L 01/23/18 05:32 MCHC 32 % (32-34) 01/23/18 05:32 RDW 16.0 % (13.2-15.2) H 01/23/18 05:32 Plt Count 157 K/mm3 (140-440) 01/23/18 05:32 Lymph % (Auto) 10.6 % (13.4-35.0) L 01/22/18 05:46 [place] % (Auto) 10.9 % (0.0-7.3) H 01/22/18 05:46 Eos % (Auto) 6.3 % (0.0-4.3) H 01/22/18 05:46 Baso % (Auto) 0.4 % (0.0-1.8) 01/22/18 05:46 Lymph # 0.5 K/mm3 (1.2-5.4) L 01/22/18 05:46 [place] # 0.5 K/mm3 (0.0-0.8) 01/22/18 05:46 Eos # 0.3 K/mm3 (0.0-0.4) 01/22/18 05:46 Baso # 0.0 K/mm3 (0.0-0.1) 01/22/18 05:46 Seg Neutrophils % 71.8 % (40.0-70.0) H 01/22/18 05:46 Seg Neutrophils # 3.5 K/mm3 (1.8-7.7) 01/22/18 05:46 PT 15.3 Sec. (12.2-14.9) H 01/16/18 00:34 INR 1.15 (0.87-1.13) H 01/16/18 00:34 APTT 37.4 Sec. (24.2-36.6) H 01/16/18 00:34 Sodium 135 mmol/L (137-145) L 01/23/18 05:32 Potassium 4.1 mmol/L (3.6-5.0) 01/23/18 05:32 Chloride 93.2 mmol/L (98-107) L 01/23/18 05:32 Carbon Dioxide 28 mmol/L (22-30) 01/23/18 05:32 Anion Gap 18 mmol/L 01/23/18 05:32 BUN 70 mg/dL (9-20) H 01/23/18 05:32 Creatinine 3.5 mg/dL (0.8-1.5) H 01/23/18 05:32 Estimated GFR 18 ml/min 01/23/18 05:32 BUN/Creatinine Ratio 20 % 01/23/18 05:32 Glucose 182 mg/dL (75-100) H 01/23/18 05:32 POC Glucose 266 (70-105) H 01/23/18 11:48 Calcium 8.3 mg/dL (8.4-10.2) L 01/23/18 05:32 Magnesium 2.30 mg/dL (1.7-2.3) 01/20/18 07:35 Total Bilirubin 1.10 mg/dL (0.1-1.2) 01/15/18 17:14 AST 12 units/L (5-40) 01/15/18 17:14 ALT 12 units/L (7-56) 01/15/18 17:14 Alkaline Phosphatase 107 units/L (35-129) 01/15/18 17:14 Total Creatine Kinase 78 units/L (55-170) 01/22/18 05:46 Troponin T 0.124 ng/mL (0.00-0.029) H* 01/16/18 13:52 NT-Pro-B Natriuret Pep 6509 pg/mL (0-900) H 01/16/18 00:34 Total Protein 6.7 g/dL (6.3-8.2) 01/15/18 17:14 Albumin 3.9 g/dL (3.9-5) 01/15/18 17:14 Albumin/Globulin Ratio 1.4 % 01/15/18 17:14 Triglycerides 89 mg/dL (2-149) 01/16/18 00:34 Cholesterol 102 mg/dL (50-199) 01/16/18 00:34 LDL Cholesterol Direct 57 mg/dL (50-130) 01/16/18 00:34 HDL Cholesterol 32 mg/dL (40-59) L 01/16/18 00:34 Cholesterol/HDL Ratio 3.18 % 01/16/18 00:34 Urine Color Yellow (Yellow) 01/17/18 11:34 Urine Turbidity Clear (Clear) 01/17/18 11:34 Urine pH 5.0 (5.0-7.0) 01/17/18 11:34 Ur Specific [place] 1.013 (1.003-1.030) 01/17/18 11:34 Urine Protein 100 mg/dl mg/dL (Negative) 01/17/18 11:34 Urine Glucose (UA) 50 mg/dL (Negative) 01/17/18 11:34 Urine Ketones Neg mg/dL (Negative) 01/17/18 11:34 Urine Blood Sm (Negative) 01/17/18 11:34 Urine Nitrite Neg (Negative) 01/17/18 11:34 Urine Bilirubin Neg (Negative) 01/17/18 11:34 Urine Urobilinogen < 2.0 mg/dL (<2.0) 01/17/18 11:34 Ur Leukocyte Esterase Neg (Negative) 01/17/18 11:34 Urine WBC (Auto) 1.0 /HPF (0.0-6.0) 01/17/18 11:34 Urine RBC (Auto) 3.0 /HPF (0.0-6.0) 01/17/18 11:34 U Epithel Cells (Auto) < 1.0 /HPF (0-13.0) 01/17/18 11:34 Urine Bacteria (Auto) 1+ /HPF (Negative) 01/17/18 11:34 Urine Creatinine 151.2 mg/dL (0.1-20.0) H 01/17/18 14:55 Protein/Creatinin Ratio 0.86 01/17/18 14:55 Urine Sodium 35 mmol/L 01/17/18 14:55 Urine Total Protein 130 mg/dL (5-11.8) H 01/17/18 14:55
[2018-01-23] MEDS: LANTUS SUB-Q SCH (21:03)
[2018-01-24] MEDS: NORMODYNE PO SCH ×3 (05:58→22:39)
[2018-01-24] MEDS: HumuLIN R SUB-Q SCH ×4 (07:30→22:28)
[2018-01-24 08:42] LABS: Calcium 8.7 mg/dL (8.4-10.2)
--- NOTE | 2018-01-24 08:54 | Progress Note ---
Assessment and Plan Assessment and plan: Acute CHF exacerbation -EF 50-55% on echocardiogram this admission -Patient with elevated BNP of 6500 but chest x-ray found to be negative -Continue CHF protocol. medical managment at this time. -Cardiology following lasix was held due to renal function. Monitor. Elevated troponin probably secondary to CKD 3 -Continue serial troponin level monitoring -Continue home Plavix, aspirin and lipitor. Insulin-dependent diabetes mellitus type 2 with hyperglycemia -Continue on both basal and prandial insulin regimen - adjusted meds, Better controlled. Acute on chronic kidney disease stage 3 -Nephrology following -Renal function improving. Possible HD. Continue to monitor BMP. -creatnine down to 3.4 Tremor/Panic/nightmares -Check ABG ruleout CO2 Narcolepsy in am -May need sleep study outpatient. Patient on previous sleep study had mild apnea. Uncontrolled hypertension -Continue antihypertensives and iv hydralazine prn Chronic anemia -H/H are stable, will monitor Prophylaxis -DVT prophylaxis with SCD Discussed extensively with spouse and patient in detail. Will await renal improvement History Interval history: Patient seen and examined, no new complaints, Resting comfortable. Admitted with CHF. Hospitalist Physical - Physical exam Narrative exam: General appearance: Present: no acute distress, well-nourished - EENT Eyes: Present: PERRL, Legally blind ENT: hearing intact, clear oral mucosa, dentition normal - Neck Neck: Present: supple, normal ROM - Respiratory Respiratory effort: normal Respiratory: bilateral: CTA - Cardiovascular Rhythm: regular Heart Sounds: Present: S1 & S2. Absent: gallop, rub - Extremities Extremities: no ischemia, +2 edema, Full ROM - Abdominal General gastrointestinal: soft, non-tender, non-distended, normal bowel sounds - Integumentary Integumentary: Present: clear, warm, edema +2 - Neurologic Neurologic: CNII-XII intact, moves all extremities - Constitutional Vitals: Temp Pulse Resp BP Pulse Ox 98.2 F 62 18 161/62 92 01/24/18 04:58 01/24/18 04:58 01/24/18 04:58 01/24/18 04:58 01/24/18 04:58 General appearance: Present: no acute distress, well-nourished Results - Labs CBC & Chem 7: 01/23/18 05:32 01/24/18 08:13 Labs: Laboratory Last Values WBC 5.1 K/mm3 (4.5-11.0) 01/23/18 05:32 RBC 3.34 M/mm3 (3.65-5.03) L 01/23/18 05:32 Hgb 9.0 gm/dl (11.8-15.2) L 01/23/18 05:32 Hct 28.1 % (35.5-45.6) L 01/23/18 05:32 MCV 84 fl (84-94) 01/23/18 05:32 MCH 27 pg (28-32) L 01/23/18 05:32 MCHC 32 % (32-34) 01/23/18 05:32 RDW 16.0 % (13.2-15.2) H 01/23/18 05:32 Plt Count 157 K/mm3 (140-440) 01/23/18 05:32 Lymph % (Auto) 10.6 % (13.4-35.0) L 01/22/18 05:46 [place] % (Auto) 10.9 % (0.0-7.3) H 01/22/18 05:46 Eos % (Auto) 6.3 % (0.0-4.3) H 01/22/18 05:46 Baso % (Auto) 0.4 % (0.0-1.8) 01/22/18 05:46 Lymph # 0.5 K/mm3 (1.2-5.4) L 01/22/18 05:46 [place] # 0.5 K/mm3 (0.0-0.8) 01/22/18 05:46 Eos # 0.3 K/mm3 (0.0-0.4) 01/22/18 05:46 Baso # 0.0 K/mm3 (0.0-0.1) 01/22/18 05:46 Seg Neutrophils % 71.8 % (40.0-70.0) H 01/22/18 05:46 Seg Neutrophils # 3.5 K/mm3 (1.8-7.7) 01/22/18 05:46 PT 15.3 Sec. (12.2-14.9) H 01/16/18 00:34 INR 1.15 (0.87-1.13) H 01/16/18 00:34 APTT 37.4 Sec. (24.2-36.6) H 01/16/18 00:34 Sodium 133 mmol/L (137-145) L 01/24/18 08:13 Potassium 4.0 mmol/L (3.6-5.0) 01/24/18 08:13 Chloride 92.0 mmol/L (98-107) L 01/24/18 08:13 Carbon Dioxide 27 mmol/L (22-30) 01/24/18 08:13 Anion Gap 18 mmol/L 01/24/18 08:13 BUN 70 mg/dL (9-20) H 01/24/18 08:13 Creatinine 3.4 mg/dL (0.8-1.5) H 01/24/18 08:13 Estimated GFR 19 ml/min 01/24/18 08:13 BUN/Creatinine Ratio 21 % 01/24/18 08:13 Glucose 113 mg/dL (75-100) H 01/24/18 08:13 POC Glucose 104 (70-105) 01/24/18 06:00 Calcium 8.7 mg/dL (8.4-10.2) 01/24/18 08:13 Magnesium 2.30 mg/dL (1.7-2.3) 01/20/18 07:35 Total Bilirubin 1.10 mg/dL (0.1-1.2) 01/15/18 17:14 AST 12 units/L (5-40) 01/15/18 17:14 ALT 12 units/L (7-56) 01/15/18 17:14 Alkaline Phosphatase 107 units/L (35-129) 01/15/18 17:14 Total Creatine Kinase 78 units/L (55-170) 01/22/18 05:46 Troponin T 0.124 ng/mL (0.00-0.029) H* 01/16/18 13:52 NT-Pro-B Natriuret Pep 6509 pg/mL (0-900) H 01/16/18 00:34 Total Protein 6.7 g/dL (6.3-8.2) 01/15/18 17:14 Albumin 3.9 g/dL (3.9-5) 01/15/18 17:14 Albumin/Globulin Ratio 1.4 % 01/15/18 17:14 Triglycerides 89 mg/dL (2-149) 01/16/18 00:34 Cholesterol 102 mg/dL (50-199) 01/16/18 00:34 LDL Cholesterol Direct 57 mg/dL (50-130) 01/16/18 00:34 HDL Cholesterol 32 mg/dL (40-59) L 01/16/18 00:34 Cholesterol/HDL Ratio 3.18 % 01/16/18 00:34 Urine Color Yellow (Yellow) 01/17/18 11:34 Urine Turbidity Clear (Clear) 01/17/18 11:34 Urine pH 5.0 (5.0-7.0) 01/17/18 11:34 Ur Specific [place] 1.013 (1.003-1.030) 01/17/18 11:34 Urine Protein 100 mg/dl mg/dL (Negative) 01/17/18 11:34 Urine Glucose (UA) 50 mg/dL (Negative) 01/17/18 11:34 Urine Ketones Neg mg/dL (Negative) 01/17/18 11:34 Urine Blood Sm (Negative) 01/17/18 11:34 Urine Nitrite Neg (Negative) 01/17/18 11:34 Urine Bilirubin Neg (Negative) 01/17/18 11:34 Urine Urobilinogen < 2.0 mg/dL (<2.0) 01/17/18 11:34 Ur Leukocyte Esterase Neg (Negative) 01/17/18 11:34 Urine WBC (Auto) 1.0 /HPF (0.0-6.0) 01/17/18 11:34 Urine RBC (Auto) 3.0 /HPF (0.0-6.0) 01/17/18 11:34 U Epithel Cells (Auto) < 1.0 /HPF (0-13.0) 01/17/18 11:34 Urine Bacteria (Auto) 1+ /HPF (Negative) 01/17/18 11:34 Urine Creatinine 151.2 mg/dL (0.1-20.0) H 01/17/18 14:55 Protein/Creatinin Ratio 0.86 01/17/18 14:55 Urine Sodium 35 mmol/L 01/17/18 14:55 Urine Total Protein 130 mg/dL (5-11.8) H 01/17/18 14:55
--- NOTE | 2018-01-24 09:07 | Progress Note ---
Assessment and Plan 1. Acute kidney injury: SAMUEL superimposed on CKD stage 3 likely hemodynamically mediated in the CHF exacerbation +/- diuresis. Slight improvement in the creatinine level. Monitor renal function. 2. Volume overload: Secondary to CHF exacerbation. Strict I/Os. Resume Lasix. 3. CKD stage 3. Secondary to Diabetic Nephropathy. 4. Anemia. Subjective Date of service: 01/24/18 Interval history: Patient is doing ok. Objective - Vital Signs Vital signs: Vital Signs - 12hr 01/23/18 01/23/18 01/24/18 22:12 23:39 04:58 Temperature 98.5 F 98.2 F Pulse Rate 62 63 62 Respiratory 18 18 Rate Blood Pressure 144/51 161/62 O2 Sat by Pulse 94 92 Oximetry - General Appearance General appearance: well-developed, well-nourished, appears stated age, obese, other (no distress) EENT: ATNC, hearing intact Neck: supple Respiratory: Present: Clear to Ascultation Cardiology: regular, S1S2, no murmurs Gastrointestinal: normoactive bowel sounds Integumentary: no rash, warm and dry Neurologic: no asterixis, alert and oriented x3, other (bilateral blindness) Musculoskeletal: other (1+ edema of both LEs noted) Psychiatric: mood/affect appropriate, cooperative - Lab 01/23/18 05:32 01/24/18 08:13 Most recent lab results Calcium 8.7 mg/dL (8.4-10.2) 01/24/18 08:13 Magnesium 2.30 mg/dL (1.7-2.3) 01/20/18 07:35 Urine Creatinine 151.2 mg/dL (0.1-20.0) H 01/17/18 14:55 Urine Sodium 35 mmol/L 01/17/18 14:55 Urine Total Protein 130 mg/dL (5-11.8) H 01/17/18 14:55
[2018-01-24] MEDS: HALFPRIN EC PO SCH (09:39)
[2018-01-24] MEDS: PLAVIX PO SCH (09:39)
[2018-01-24] MEDS: CATAPRES PO SCH ×3 (09:40→22:42)
[2018-01-24] MEDS: NORVASC PO SCH (09:40)
[2018-01-24] MEDS: MIRALAX 3350 PO SCH (09:41)
[2018-01-24] MEDS: LASIX PO SCH ×2 (09:44→22:39)
--- NOTE | 2018-01-24 13:44 | Progress Note ---
Assessment and Plan - Patient Problems (1) Diastolic CHF Current Visit: Yes Status: Acute Plan to address problem: Continue medical therapy for heart failure with preserved ejection fraction. Subjective Date of service: 01/24/18 Interval history: Patient is comfortable, in no acute distress. No chest pain and no shortness of breath. He still has 1-2+ bilateral lower extremity edema. Objective Vital Signs Temp Pulse Resp BP Pulse Ox 01/24/18 12:00 98.3 F 63 18 158/57 97 01/24/18 08:41 98.4 F 62 16 157/60 96 01/24/18 04:58 98.2 F 62 18 161/62 92 01/23/18 23:39 98.5 F 63 18 144/51 94 01/23/18 22:12 62 01/23/18 20:51 20 01/23/18 19:22 98.1 F 61 18 149/53 97 01/23/18 15:48 68 158/61 95 01/23/18 14:33 64 160/74 - Physical Examination General: No Apparent Distress Neck: Positive: neck supple, trachea midline Cardiac: Positive: Reg Rate and Rhythm Lungs: Positive: clear to auscultation Neuro: Positive: Grossly Intact Abdomen: Positive: Soft Skin: Positive: Clear Extremities: Present: +1 Edema - Labs and Meds Comprehensive Metabolic Panel 01/24/18 Range/Units 08:13 Sodium 133 L (137-145) mmol/L Potassium 4.0 (3.6-5.0) mmol/L Chloride 92.0 L (98-107) mmol/L Carbon Dioxide 27 (22-30) mmol/L BUN 70 H (9-20) mg/dL Creatinine 3.4 H (0.8-1.5) mg/dL Glucose 113 H (75-100) mg/dL Calcium 8.7 (8.4-10.2) mg/dL
[2018-01-24] MEDS: LANTUS SUB-Q SCH (22:39)
[2018-01-25] MEDS: NORMODYNE PO SCH ×3 (05:56→21:44)
[2018-01-25 07:07] LABS: Calcium 8.6 mg/dL (8.4-10.2)
[2018-01-25] MEDS: CATAPRES PO SCH ×3 (08:31→21:43)
[2018-01-25] MEDS: HumuLIN R SUB-Q SCH ×4 (08:31→21:42)
--- NOTE | 2018-01-25 09:43 | Progress Note ---
Assessment and Plan 1. Acute kidney injury: SAMUEL superimposed on CKD stage 3 likely hemodynamically mediated in the CHF exacerbation +/- diuresis. Creatinine level is improving. Monitor renal function. 2. Volume overload: Secondary to CHF exacerbation. Strict I/Os. Continue Lasix. 3. CKD stage 3. Secondary to Diabetic Nephropathy. 4. Anemia. Subjective Date of service: 01/25/18 Interval history: Patient is doing ok. Objective - Vital Signs Vital signs: Vital Signs - 12hr 01/24/18 01/25/18 01/25/18 21:47 00:01 00:44 Temperature 98.9 F Pulse Rate 59 L Respiratory 20 Rate Blood Pressure 161/58 Blood Pressure 161/58 [Left] O2 Sat by Pulse 97 99 Oximetry 01/25/18 01/25/18 01/25/18 04:45 05:23 07:36 Temperature 98.9 F 98.2 F Pulse Rate 60 58 L Respiratory 18 20 Rate Blood Pressure 154/59 147/56 Blood Pressure 155/59 [Left] O2 Sat by Pulse 91 94 Oximetry 01/25/18 08:31 Temperature Pulse Rate Respiratory Rate Blood Pressure 147/63 Blood Pressure [Left] O2 Sat by Pulse Oximetry - General Appearance General appearance: well-developed, well-nourished, appears stated age, obese, other (no distress) EENT: ATNC, hearing intact Neck: supple Respiratory: Present: Clear to Ascultation Cardiology: regular, S1S2, no murmurs Gastrointestinal: normoactive bowel sounds, no tenderness, no distended, obese Integumentary: no rash, warm and dry Neurologic: no asterixis, alert and oriented x3 Musculoskeletal: other (1+ edema of both LEs noted) Psychiatric: mood/affect appropriate - Lab 01/23/18 05:32 01/25/18 06:17 Most recent lab results Calcium 8.6 mg/dL (8.4-10.2) 01/25/18 06:17 Magnesium 2.30 mg/dL (1.7-2.3) 01/20/18 07:35 Urine Creatinine 151.2 mg/dL (0.1-20.0) H 01/17/18 14:55 Urine Sodium 35 mmol/L 01/17/18 14:55 Urine Total Protein 130 mg/dL (5-11.8) H 01/17/18 14:55
[2018-01-25] MEDS: CEPHULAC PO PRN (10:22)
[2018-01-25] MEDS: NORVASC PO SCH (10:23)
[2018-01-25] MEDS: HALFPRIN EC PO SCH (10:23)
[2018-01-25] MEDS: LASIX PO SCH ×2 (10:23→21:43)
[2018-01-25] MEDS: PLAVIX PO SCH (10:23)
[2018-01-25] MEDS: MIRALAX 3350 PO SCH (10:24)
--- NOTE | 2018-01-25 11:26 | Progress Note ---
Assessment and Plan Acute heart failure with a preserved ejection fraction. CKD DM Hypertension Hx of CAD s/p 4vCABG 2013 Hx of Ischemic cardiomyopathy with an improved EF EF 50-55% on echocardiogram this admission. Recommendations: Continue medical therapy for heart failure with a preserved EF. Otherwise, conservative cardiac management. Subjective Date of service: 01/25/18 Interval history: Patient has no complaints. Objective Vital Signs Temp Pulse Resp BP BP Pulse Ox 01/25/18 10:00 94 01/25/18 08:31 147/63 01/25/18 07:36 98.2 F 58 L 20 147/56 94 01/25/18 05:23 98.9 F 60 18 155/59 91 01/25/18 04:45 154/59 01/25/18 00:44 98.9 F 59 L 20 161/58 99 01/25/18 00:01 161/58 01/24/18 21:47 97 01/24/18 21:23 20 01/24/18 20:16 98.2 F 65 18 147/55 93 01/24/18 19:37 64 147/55 92 01/24/18 18:28 93 01/24/18 16:06 97.9 F 62 18 150/55 92 01/24/18 13:49 62 01/24/18 12:00 98.3 F 63 18 158/57 97 - Physical Examination General: No Apparent Distress Cardiac: Positive: Reg Rate and Rhythm Neuro: Positive: Grossly Intact Extremities: Present: +1 Edema - Labs and Meds Comprehensive Metabolic Panel 01/25/18 Range/Units 06:17 Sodium 138 (137-145) mmol/L Potassium 3.8 (3.6-5.0) mmol/L Chloride 95.6 L (98-107) mmol/L Carbon Dioxide 28 (22-30) mmol/L BUN 76 H (9-20) mg/dL Creatinine 3.3 H (0.8-1.5) mg/dL Glucose 97 (75-100) mg/dL Calcium 8.6 (8.4-10.2) mg/dL
--- NOTE | 2018-01-25 17:19 | Progress Note ---
Assessment and Plan Assessment and plan: Acute CHF exacerbation -EF 50-55% on echocardiogram this admission -Patient with elevated BNP of 6500 but chest x-ray found to be negative -Continue CHF protocol. medical management at this time. -Cardiology following -Lasix restarted with close monitoring or renal function. Type 2 AL secondary to CKD 3 -Continue home Plavix, aspirin and lipitor. Insulin-dependent diabetes mellitus type 2 with hyperglycemia -Continue on both basal and prandial insulin regimen - adjusted meds, Better controlled. Acute on chronic kidney disease stage 3 -Nephrology following -Renal function improving. Possible HD. Continue to monitor BMP. -Creatinine down to 3.3 Tremor/Panic/nightmares -ABG -May need sleep study outpatient. Patient on previous sleep study had mild apnea. Uncontrolled hypertension -Continue antihypertensives and iv hydralazine prn Chronic anemia -H/H are stable, will monitor Prophylaxis -DVT prophylaxis with SCD Discussed extensively with spouse and patient in detail. Anticipate discharge tomorrow. Discussed in detail with Nephrology History Interval history: Patient seen and examined, no new complaints, Resting comfortable. Admitted with CHF. Hospitalist Physical - Physical exam Narrative exam: General appearance: Present: no acute distress, well-nourished - EENT Eyes: Present: PERRL, Legally blind ENT: hearing intact, clear oral mucosa, dentition normal - Neck Neck: Present: supple, normal ROM - Respiratory Respiratory effort: normal Respiratory: bilateral: CTA - Cardiovascular Rhythm: regular Heart Sounds: Present: S1 & S2. Absent: gallop, rub - Extremities Extremities: no ischemia, +2 edema, Full ROM - Abdominal General gastrointestinal: soft, non-tender, non-distended, normal bowel sounds - Integumentary Integumentary: Present: clear, warm, edema +2 - Neurologic Neurologic: CNII-XII intact, moves all extremities - Constitutional Vitals: Temp Pulse Resp BP Pulse Ox 97.3 F L 61 20 155/58 93 01/25/18 16:02 01/25/18 16:02 01/25/18 16:02 01/25/18 16:02 01/25/18 16:02 General appearance: Present: no acute distress, well-nourished Results - Labs CBC & Chem 7: 01/23/18 05:32 01/25/18 06:17 Labs: Laboratory Last Values WBC 5.1 K/mm3 (4.5-11.0) 01/23/18 05:32 RBC 3.34 M/mm3 (3.65-5.03) L 01/23/18 05:32 Hgb 9.0 gm/dl (11.8-15.2) L 01/23/18 05:32 Hct 28.1 % (35.5-45.6) L 01/23/18 05:32 MCV 84 fl (84-94) 01/23/18 05:32 MCH 27 pg (28-32) L 01/23/18 05:32 MCHC 32 % (32-34) 01/23/18 05:32 RDW 16.0 % (13.2-15.2) H 01/23/18 05:32 Plt Count 157 K/mm3 (140-440) 01/23/18 05:32 Lymph % (Auto) 10.6 % (13.4-35.0) L 01/22/18 05:46 [place] % (Auto) 10.9 % (0.0-7.3) H 01/22/18 05:46 Eos % (Auto) 6.3 % (0.0-4.3) H 01/22/18 05:46 Baso % (Auto) 0.4 % (0.0-1.8) 01/22/18 05:46 Lymph # 0.5 K/mm3 (1.2-5.4) L 01/22/18 05:46 [place] # 0.5 K/mm3 (0.0-0.8) 01/22/18 05:46 Eos # 0.3 K/mm3 (0.0-0.4) 01/22/18 05:46 Baso # 0.0 K/mm3 (0.0-0.1) 01/22/18 05:46 Seg Neutrophils % 71.8 % (40.0-70.0) H 01/22/18 05:46 Seg Neutrophils # 3.5 K/mm3 (1.8-7.7) 01/22/18 05:46 PT 15.3 Sec. (12.2-14.9) H 01/16/18 00:34 INR 1.15 (0.87-1.13) H 01/16/18 00:34 APTT 37.4 Sec. (24.2-36.6) H 01/16/18 00:34 POC ABG pH TNR 01/24/18 21:51 POC ABG pCO2 TNR 01/24/18 21:51 POC ABG pO2 TNR 01/24/18 21:51 POC ABG HCO3 TNR 01/24/18 21:51 POC ABG Total CO2 TNR 01/24/18 21:51 POC ABG O2 Sat TNR 01/24/18 21:51 POC ABG Base Excess TNR 01/24/18 21:51 FiO2 TNR 01/24/18 21:51 Sodium 138 mmol/L (137-145) 01/25/18 06:17 Potassium 3.8 mmol/L (3.6-5.0) 01/25/18 06:17 Chloride 95.6 mmol/L (98-107) L 01/25/18 06:17 Carbon Dioxide 28 mmol/L (22-30) 01/25/18 06:17 Anion Gap 18 mmol/L 01/25/18 06:17 BUN 76 mg/dL (9-20) H 01/25/18 06:17 Creatinine 3.3 mg/dL (0.8-1.5) H 01/25/18 06:17 Estimated GFR 19 ml/min 01/25/18 06:17 BUN/Creatinine Ratio 23 % 01/25/18 06:17 Glucose 97 mg/dL (75-100) 01/25/18 06:17 POC Glucose 97 (70-105) 01/25/18 06:39 Calcium 8.6 mg/dL (8.4-10.2) 01/25/18 06:17 Magnesium 2.30 mg/dL (1.7-2.3) 01/20/18 07:35 Total Bilirubin 1.10 mg/dL (0.1-1.2) 01/15/18 17:14 AST 12 units/L (5-40) 01/15/18 17:14 ALT 12 units/L (7-56) 01/15/18 17:14 Alkaline Phosphatase 107 units/L (35-129) 01/15/18 17:14 Total Creatine Kinase 78 units/L (55-170) 01/22/18 05:46 Troponin T 0.124 ng/mL (0.00-0.029) H* 01/16/18 13:52 NT-Pro-B Natriuret Pep 6509 pg/mL (0-900) H 01/16/18 00:34 Total Protein 6.7 g/dL (6.3-8.2) 01/15/18 17:14 Albumin 3.9 g/dL (3.9-5) 01/15/18 17:14 Albumin/Globulin Ratio 1.4 % 01/15/18 17:14 Triglycerides 89 mg/dL (2-149) 01/16/18 00:34 Cholesterol 102 mg/dL (50-199) 01/16/18 00:34 LDL Cholesterol Direct 57 mg/dL (50-130) 01/16/18 00:34 HDL Cholesterol 32 mg/dL (40-59) L 01/16/18 00:34 Cholesterol/HDL Ratio 3.18 % 01/16/18 00:34 Urine Color Yellow (Yellow) 01/17/18 11:34 Urine Turbidity Clear (Clear) 01/17/18 11:34 Urine pH 5.0 (5.0-7.0) 01/17/18 11:34 Ur Specific [place] 1.013 (1.003-1.030) 01/17/18 11:34 Urine Protein 100 mg/dl mg/dL (Negative) 01/17/18 11:34 Urine Glucose (UA) 50 mg/dL (Negative) 01/17/18 11:34 Urine Ketones Neg mg/dL (Negative) 01/17/18 11:34 Urine Blood Sm (Negative) 01/17/18 11:34 Urine Nitrite Neg (Negative) 01/17/18 11:34 Urine Bilirubin Neg (Negative) 01/17/18 11:34 Urine Urobilinogen < 2.0 mg/dL (<2.0) 01/17/18 11:34 Ur Leukocyte Esterase Neg (Negative) 01/17/18 11:34 Urine WBC (Auto) 1.0 /HPF (0.0-6.0) 01/17/18 11:34 Urine RBC (Auto) 3.0 /HPF (0.0-6.0) 01/17/18 11:34 U Epithel Cells (Auto) < 1.0 /HPF (0-13.0) 01/17/18 11:34 Urine Bacteria (Auto) 1+ /HPF (Negative) 01/17/18 11:34 Urine Creatinine 151.2 mg/dL (0.1-20.0) H 01/17/18 14:55 Protein/Creatinin Ratio 0.86 01/17/18 14:55 Urine Sodium 35 mmol/L 01/17/18 14:55 Urine Total Protein 130 mg/dL (5-11.8) H 01/17/18 14:55
[2018-01-25] MEDS: LANTUS SUB-Q SCH (21:42)
[2018-01-26] MEDS: NORMODYNE PO SCH ×2 (06:37→13:49)
[2018-01-26 07:01] LABS: Calcium 8.3 mg/dL (8.4-10.2)
[2018-01-26] MEDS: HumuLIN R SUB-Q SCH ×2 (07:40→13:48)
--- NOTE | 2018-01-26 08:12 | Progress Note ---
Assessment and Plan 1. Acute kidney injury: SAMUEL superimposed on CKD stage 3 likely hemodynamically mediated in the CHF exacerbation +/- diuresis. Creatinine level is slowly improving. Monitor renal function. 2. Volume overload: Secondary to CHF exacerbation. Strict I/Os. Continue Lasix. 3. CKD stage 3. Secondary to Diabetic Nephropathy. 4. Anemia. Patient to follow up with me in one week. Subjective Date of service: 01/26/18 Interval history: Patient is doing ok. UOP is increasing. Objective - Vital Signs Vital signs: Vital Signs - 12hr 01/25/18 01/25/18 01/25/18 20:16 20:30 22:00 Temperature 97.7 F Pulse Rate 62 61 Respiratory 20 Rate Blood Pressure Blood Pressure 155/62 [Left] O2 Sat by Pulse 94 97 Oximetry 01/26/18 01/26/18 01/26/18 00:04 05:39 05:40 Temperature 97.7 F 97.8 F Pulse Rate 61 58 L 58 L Respiratory 20 22 Rate Blood Pressure 151/55 154/53 Blood Pressure [Left] O2 Sat by Pulse 94 98 99 Oximetry 01/26/18 06:37 Temperature Pulse Rate 58 L Respiratory Rate Blood Pressure Blood Pressure [Left] O2 Sat by Pulse Oximetry - General Appearance General appearance: well-developed, well-nourished, appears stated age, obese, other (no distress) EENT: ATNC, hearing intact Neck: supple Respiratory: Present: Clear to Ascultation Cardiology: regular, S1S2, no murmurs Gastrointestinal: normoactive bowel sounds, no tenderness, obese Integumentary: no rash, warm and dry Neurologic: no asterixis, alert and oriented x3, other (bilateral blindness) Musculoskeletal: other (1+ edema of both LEs noted) Psychiatric: mood/affect appropriate, cooperative - Lab 01/23/18 05:32 01/26/18 06:02 Most recent lab results Calcium 8.3 mg/dL (8.4-10.2) L 01/26/18 06:02 Magnesium 2.30 mg/dL (1.7-2.3) 01/20/18 07:35 Urine Creatinine 151.2 mg/dL (0.1-20.0) H 01/17/18 14:55 Urine Sodium 35 mmol/L 01/17/18 14:55 Urine Total Protein 130 mg/dL (5-11.8) H 01/17/18 14:55
--- NOTE | 2018-01-26 10:30 | Discharge Summary ---
Providers - Providers Date of Admission: 01/16/18 01:50 Attending physician: CINTHYA GILES MD 01/16/18 11:34 Consult to Physician [CONS] Routine Comment: Consulting Provider: MYRA GIRALDO Physician Instructions: Reason For Exam: chf, elevated trop 01/17/18 09:03 Consult to Physician [CONS] Routine Comment: Consulting Provider: SINGH PEREZ Physician Instructions: Reason For Exam: renal failure 01/24/18 12:59 Physical Therapy Evaluation and Treat [CONS] Routine Comment: Reason For Exam: WEAKNESS Primary care physician: [employer] Hospitalization Condition: Stable Hospital course: Acute CHF exacerbation -EF 50-55% on echocardiogram this admission -Patient with elevated BNP of 6500 but chest x-ray found to be negative -Continue CHF protocol. medical management at this time. -Cardiology following -Lasix restarted with close monitoring or renal function. Type 2 NC secondary to CKD 3 -Continue home Plavix, aspirin and lipitor. Insulin-dependent diabetes mellitus type 2 with hyperglycemia -Continue on both basal and prandial insulin regimen - adjusted meds, Better controlled. Acute on chronic kidney disease stage 3 -Nephrology following -Renal function improving. Possible HD. Continue to monitor BMP. -Creatinine down to 3.3 Tremor/Panic/nightmares -ABG -May need sleep study outpatient. Patient on previous sleep study had mild apnea. Uncontrolled hypertension -Continue antihypertensives and iv hydralazine prn Chronic anemia -H/H are stable, will monitor Prophylaxis -DVT prophylaxis with SCD Discussed extensively with spouse and patient in detail. Anticipate discharge tomorrow. Discussed in detail with Nephrology Disposition: DC-01 TO HOME OR SELFCARE Time spent for discharge: 35 mins Core Measure Documentation - Palliative Care Palliative Care/ Comfort Measures: Not Applicable - Core Measures Any of the following diagnoses?: none - VTE Discharge Requirements Deep Vein Thrombosis/Pulmonary Embolism Present on Admission: No Exam - Physical Exam Narrative exam: General appearance: Present: no acute distress, well-nourished - EENT Eyes: Present: PERRL, Legally blind ENT: hearing intact, clear oral mucosa, dentition normal - Neck Neck: Present: supple, normal ROM - Respiratory Respiratory effort: normal Respiratory: bilateral: CTA - Cardiovascular Rhythm: regular Heart Sounds: Present: S1 & S2. Absent: gallop, rub - Extremities Extremities: no ischemia, +2 edema, Full ROM - Abdominal General gastrointestinal: soft, non-tender, non-distended, normal bowel sounds - Integumentary Integumentary: Present: clear, warm, edema +2 - Neurologic Neurologic: CNII-XII intact, moves all extremities - Constitutional Vitals: Temp Pulse Resp BP Pulse Ox 97.6 F 65 20 161/62 97 01/26/18 07:19 01/26/18 07:40 01/26/18 07:19 01/26/18 07:19 01/26/18 07:19 Plan Activity: advance as tolerated, fall precautions Diet: diabetic Special Instructions: record daily weights, record daily BP diary, record blood sugar diary Follow up with: PRIMARY CAREMD [Primary Care Provider] - 3-5 Days SINGH PEREZ MD [Staff Physician] - 7 Days REINIER DIANE MD [Staff Physician] - 7 Days Prescriptions: Aspirin EC [Aspirin Enteric Coated TAB] 81 mg PO QDAY #30 tablet cloNIDine [Catapres] 0.3 mg PO TID #90 tablet Furosemide [Lasix TAB] 40 mg PO BID #60 tablet Labetalol [Normodyne TAB] 400 mg PO Q8HR #90 tablet
[2018-01-26] MEDS: PLAVIX PO SCH (11:01)
[2018-01-26] MEDS: LASIX PO SCH (11:02)
[2018-01-26] MEDS: HALFPRIN EC PO SCH (11:02)
[2018-01-26] MEDS: NORVASC PO SCH (11:02)
[2018-01-26] MEDS: CATAPRES PO SCH ×2 (11:02→13:49)
[2018-01-26 11:03] VITALS: BP 161/65
[2018-01-26] MEDS: MIRALAX 3350 PO SCH (11:03)
--- NOTE | 2018-01-26 12:57 | Progress Note ---
Assessment and Plan Acute heart failure with a preserved ejection fraction. CKD DM Hypertension Hx of CAD s/p 4vCABG 2013 Hx of Ischemic cardiomyopathy with an improved EF EF 50-55% on echocardiogram this admission. Recommendations: Continue medical therapy for heart failure with a preserved EF. Otherwise, conservative cardiac management. Subjective Date of service: 01/26/18 Interval history: Patient has no cardiac complaints. Objective Vital Signs Temp Pulse Pulse Pulse Resp BP BP 01/26/18 11:02 161/65 01/26/18 10:36 98.5 F 67 20 166/63 01/26/18 10:00 01/26/18 07:40 65 65 01/26/18 07:19 97.6 F 64 20 161/62 01/26/18 06:37 58 L 01/26/18 05:40 58 L 01/26/18 05:39 97.8 F 58 L 22 154/53 01/26/18 00:04 97.7 F 61 20 151/55 01/25/18 22:00 61 01/25/18 20:30 97.7 F 62 20 155/62 01/25/18 20:16 01/25/18 16:02 97.3 F L 61 20 155/58 Pulse Ox 01/26/18 11:02 01/26/18 10:36 96 01/26/18 10:00 98 01/26/18 07:40 01/26/18 07:19 97 01/26/18 06:37 01/26/18 05:40 99 01/26/18 05:39 98 01/26/18 00:04 94 01/25/18 22:00 01/25/18 20:30 97 01/25/18 20:16 94 01/25/18 16:02 93 - Physical Examination General: No Apparent Distress Cardiac: Positive: Reg Rate and Rhythm Lungs: Positive: Decreased Breath Sounds Neuro: Positive: Grossly Intact Extremities: Present: +1 Edema - Labs and Meds Comprehensive Metabolic Panel 01/26/18 Range/Units 06:02 Sodium 138 (137-145) mmol/L Potassium 3.6 (3.6-5.0) mmol/L Chloride 94.9 L (98-107) mmol/L Carbon Dioxide 27 (22-30) mmol/L BUN 73 H (9-20) mg/dL Creatinine 3.3 H (0.8-1.5) mg/dL Glucose 72 L (75-100) mg/dL Calcium 8.3 L (8.4-10.2) mg/dL
[2018-01-26 19:56] LABS: Myeloperoxidase Antibody <1.0 AI (<1.0)
[2018-01-26 20:25] LABS: ANA Screen, IFA Negative (Negative)
[2018-01-26 21:49] LABS: Albumin 3.4 g/dL (3.8-4.8); Gamma Globulin 0.8 g/dL (0.8-1.7)
[2018-01-26] MEDS ORDERED: LANTUS SUB-Q SCH (22:00)
== END 2018-01-26 14:20 | disposition home or self-care (01) | DRG 280 ==
LOC: ED 15:38 → 4A 01-16 01:50
PROVIDERS: ADMIT Internal Medicine; ATTEND Internal Medicine
PROC: 4A033R1 Measurement of Arterial Saturation, Peripheral, Percutaneous Approach (ICD-10-PCS; principal; 2018-01-24)
DX: I13.0 Hypertensive heart and chronic kidney disease with heart failure and stage 1 through stage 4 chronic kidney disease, or unspecified chronic kidney disease (principal); I21.A1 Myocardial infarction type 2; N17.0 Acute kidney failure with tubular necrosis; I50.43 Acute on chronic combined systolic (congestive) and diastolic (congestive) heart failure; N18.4 Chronic kidney disease, stage 4 (severe); E11.65 Type 2 diabetes mellitus with hyperglycemia; I25.2 Old myocardial infarction; D64.9 Anemia, unspecified; E11.21 Type 2 diabetes mellitus with diabetic nephropathy; E11.22 Type 2 diabetes mellitus with diabetic chronic kidney disease; H54.8 Legal blindness, as defined in USA; R25.1 Tremor, unspecified; Z79.4 Long term (current) use of insulin; Z95.1 Presence of aortocoronary bypass graft
CPT/HCPCS: 36415; 36600; 71046; 76770; 80048; 80053; 80061; 81001; 82550; 82570; 82803; 82962; 83735; 83880; 84156; 84165; 84300; 84484; 85025; 85027; 85610; 85730; 86021; 86038; 86160; 93005; 93010; 93306; 93970; 94760; 96372; 96374; 96375; A9270-GY; J0360; J1815; J1940

== ENCOUNTER 2018-03-13 12:57 | Inpatient (IN) | payer OTHER ==
[2018-03-13 13:39] LABS: Hematocrit 37.5 % (35.5-45.6); Hemoglobin 12.7 gm/dl (11.8-15.2); Mean Corpuscular HGB Conc 34 % (32-34); Mean Corpuscular Hemoglobin 28 pg (28-32); Mean Corpuscular Volume 82 fl (84-94); Platelet Count 136 K/mm3 (140-440); Red Blood Count 4.59 M/mm3 (3.65-5.03); Red Cell Distribution Width 16.7 % (13.2-15.2)
[2018-03-13 13:49] LABS: INR 0.95 (0.87-1.13)
[2018-03-13 13:50] LABS: Partial Thromboplastin Time 24.5 Sec. (24.2-36.6)
[2018-03-13 13:57] LABS: Calcium 9.1 mg/dL (8.4-10.2)
[2018-03-13 14:01] LABS: Alanine Aminotransferase 25 units/L (7-56); Albumin 3.9 g/dL (3.9-5)
[2018-03-13 14:04] LABS: Bilirubin,Direct < 0.2 mg/dL (0-0.2)
[2018-03-13] MEDS ORDERED: KIONEX PO ONE (16:41)
[2018-03-13] MEDS ORDERED: CATAPRES PO ONE (16:42)
--- NOTE | 2018-03-13 16:48 | Emergency Department Report ---
HPI - General Chief Complaint: Altered Mental Status Time Seen by Provider: 03/13/18 16:15 - HPI HPI: Room 25 The patient is 63-year-old male presented with a chief complaint of "episode of tremors." The patient states for approximately 3 months he has had episodes where his left upper extremity with occasionally jerk or flail to the side ( hemiballismus?). The patient states the past 3-4 weeks he's been having episodes where his left upper extremity shakes and is uncontrollable for several seconds. Patient sometimes feels lightheaded prior to her so were sometimes feel as though his neck could not support his head. Patient never loses consciousness during these episodes. Family states the patient sometimes complains of a dull headache with episodes. The patient occasionally has jerking both lower extremities associated with left upper extremities. The patient says he has an appointment upcoming with a neurologist Dr. Pavon. When asked how he is feeling currently the patient states he feels fairly good still feels that his mild shaking in his legs. Patient denies any preceding URI symptoms or fever and [place] until age 8 and then lived mostly in the [facility] Location: [See above] Duration: [See above] Quality: [See above] Severity: Moderate Modifying factors: [see above] Context: [see above] Mode of transportation: [not driving] ED Past Medical Hx - Past Medical History Hx Hypertension: Yes Hx Heart Attack/AMI: Yes Hx Congestive Heart Failure: Yes Hx Diabetes: Yes Hx Renal Disease: Yes Additional medical history: CHRONIC RENAL INSUFFIENCY, blind - Surgical History Hx Open Heart Surgery: Yes Additional Surgical History: CABG 4v (2013) - Family History Family history: no significant - Social History Smoking Status: Former Smoker (none 25 years) Substance Use Type: None (denies illicit drug use) - Medications Home Medications: Home Medications Medication Instructions Recorded Confirmed Last Taken Type AtorvaSTATin [Lipitor] 40 mg PO QHS 12/10/17 01/18/18 1 Day Ago History ~01/17/18 Clopidogrel [Plavix] 75 mg PO DAILY 12/10/17 01/18/18 1 Day Ago History ~01/17/18 Insulin Aspart [NovoLOG Flexpen] 6 units SQ DAILY 12/10/17 01/18/18 1 Day Ago History ~01/17/18 amLODIPine [Norvasc] 10 mg PO QDAY #30 tablet 12/13/17 01/18/18 1 Day Ago Rx ~01/17/18 Aspirin EC [Aspirin Enteric Coated 81 mg PO QDAY #30 tablet 01/26/18 Unknown Rx TAB] Furosemide [Lasix TAB] 40 mg PO BID #60 tablet 01/26/18 Unknown Rx Insulin Detemir [Levemir Flextouch] 20 units SQ DAILY #1 01/26/18 01/18/18 1 Day Ago Rx ~01/17/18 Labetalol [Normodyne TAB] 400 mg PO Q8HR #90 tablet 01/26/18 Unknown Rx cloNIDine [Catapres] 0.3 mg PO TID #90 tablet 01/26/18 Unknown Rx ED Review of Systems ROS: Stated complaint: NEURO SYMPTOMS Other details as noted in HPI Constitutional: denies: fever Eyes: denies: eye pain ENT: denies: throat pain Respiratory: denies: shortness of breath Cardiovascular: denies: chest pain Gastrointestinal: denies: abdominal pain Genitourinary: denies: dysuria Musculoskeletal: arthralgia. denies: back pain Neurological: headache, other (limb ataxia) Physical Exam - Physical Exam Vital Signs: Vital Signs 03/13/18 03/13/18 13:02 16:28 Temperature 98.4 F Pulse Rate 74 Respiratory 16 18 Rate Blood Pressure 132/64 O2 Sat by Pulse 98 98 Oximetry Physical Exam: GENERAL: The patient is well-developed well-nourished male lying on stretcher not appearing to be in acute distress. [] HEENT: Normocephalic. Atraumatic. Extraocular motions are intact. The patient is blind NECK: Supple. No meningitic signs are noted. Trachea midline CHEST/LUNGS: Clear to auscultation. There is no respiratory distress noted. HEART/CARDIOVASCULAR: Regular. There is no tachycardia. There is no gallop rub or murmur. ABDOMEN: Abdomen is soft, nontender. Patient has normal bowel sounds. There is no abdominal distention. SKIN: There is no rash. There is no edema. There is no diaphoresis. NEURO: The patient is awake, alert, and oriented. The patient is cooperative. The patient has no focal neurologic deficits. The patient has normal speech. Cranial nerves II through XII grossly intact (except for cranial nerve II- blindness) no drift. [employer] Wafer Breaker equal bilaterally. Moves all extremity as well. Attempted to perform patellar DTRs however was unable to elicit DTRs secondary to what I believe was the patient failing to relax MUSCULOSKELETAL:There is no evidence of acute injury. ED Course Vital Signs 03/13/18 03/13/18 13:02 16:28 Temperature 98.4 F Pulse Rate 74 Respiratory 16 18 Rate Blood Pressure 132/64 O2 Sat by Pulse 98 98 Oximetry ED Medical Decision Making - Lab Data Result diagrams: 03/13/18 13:23 03/13/18 13:23 Laboratory Tests 03/13/18 03/13/18 03/13/18 13:23 13:23 13:23 WBC 7.6 RBC 4.59 Hgb 12.7 Hct 37.5 MCV 82 L MCH 28 MCHC 34 RDW 16.7 H Plt Count 136 L PT 13.1 INR 0.95 APTT 24.5 Sodium 142 Potassium 5.7 H Chloride 102.9 Carbon Dioxide 26 Anion Gap 19 BUN 52 H Creatinine 2.4 H Estimated GFR 28 BUN/Creatinine Ratio 22 Glucose 204 H Calcium 9.1 Magnesium Total Bilirubin Direct Bilirubin Indirect Bilirubin AST ALT Alkaline Phosphatase Total Protein Albumin Albumin/Globulin Ratio 03/13/18 13:23 WBC RBC Hgb Hct MCV MCH MCHC RDW Plt Count PT INR APTT Sodium Potassium Chloride Carbon Dioxide Anion Gap BUN Creatinine Estimated GFR BUN/Creatinine Ratio Glucose Calcium Magnesium 2.10 Total Bilirubin 0.40 Direct Bilirubin < 0.2 Indirect Bilirubin 0.2 AST 20 ALT 25 Alkaline Phosphatase 119 Total Protein 6.9 Albumin 3.9 Albumin/Globulin Ratio 1.3 - EKG Data -: EKG Interpreted by Ca EKG shows normal: sinus rhythm Rate: normal - EKG Data When compared to previous EKG there are: previous EKG unavailable Interpretation: nonspecific ST-T wave bryan (slightly peaked T waves in V2, V3. T -wave inversion in leads 1, aVL, V6) - Radiology Data Radiology results: report reviewed (CT head), image reviewed (CT head) CT head (read by radiologist)-no acute intracranial abnormality. 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 Diffuse cerebral volume volume loss. - Differential Diagnosis multiple sclerosis, seizures, demyelinating disease Critical care attestation.: If time is entered above; I have spent that time in minutes in the direct care of this critically ill patient, excluding procedure time. ED Disposition Clinical Impression: Hyperkalemia, Limb ataxia, Renal insufficiency, Hypertension Disposition: DC-09 OP ADMIT IP TO THIS HOSP Is pt being admited?: Yes Does the pt Need Aspirin: No (renal insufficiency) Condition: Fair Instructions: Hypertension (ED) Referrals: NOELLE STEVENS MD [Primary Care Provider] - 3-5 Days Time of Disposition: 16:55 (Hospitalist notified (Dr Valadez))
--- NOTE | 2018-03-13 17:17 | History and Physical Report ---
History of Present Illness Chief complaint: Im off balance History of present illness: 63 YO Male with DM, CAD S/P CABG, CHF, CKD, [place], HTN, Legally Blind, presents to ED for evaluation. Pt states that he has experienced "episodes of tremors" over the past 3 months- which are more prominent with ambulating more than 10 feet with worsening symptoms over the past 3 weeks. Symptoms are uncontrollable and persist for longer periods of time. Pt also states that he feels lightheaded. Pt has f/u appointment scheduled for Thursday at 12:00 with his neurologist, Dr. Whitten. Pt presents to ED for further care and evaluation. Pt states that he currently feels lightheaded which is the reason for coming to the hospital. Pt seen and evaluated in ED and found to have ARF and hperkalemia. Pt admitted to medical floor. Pt denies fever, chills, lower extremity weakness, skin rash, tick bite, trauma, unintentional weight loss, consumption of raw meat, ingestion of meat products that were recalled, wild game, night sweats, or recent ill contacts. Past History Past Medical History: acute [place], CAD, diabetes, heart failure, hypertension, renal failure Past Surgical History: CABG Social history: , lives with family Family history: no significant family history (reviewed) Medications and Allergies Allergies Allergy/AdvReac Type Severity Reaction Status Date / Time No Known Allergies Allergy Verified 01/15/18 16:49 Home Medications Medication Instructions Recorded Confirmed Last Taken Type AtorvaSTATin [Lipitor] 40 mg PO QHS 12/10/17 03/13/18 1 Day Ago History ~01/17/18 Clopidogrel [Plavix] 75 mg PO DAILY 12/10/17 03/13/18 1 Day Ago History ~01/17/18 Insulin Aspart [NovoLOG Flexpen] 4 units SQ DAILY 12/10/17 03/13/18 1 Day Ago History ~01/17/18 Aspirin EC [Aspirin Enteric Coated 81 mg PO QDAY #30 tablet 01/26/18 03/13/18 Unknown Rx TAB] Furosemide [Lasix TAB] 40 mg PO QDAY 03/13/18 03/13/18 Unknown History Insulin Detemir [Levemir Flextouch] 21 units SQ DAILY 03/13/18 03/13/18 Unknown History Labetalol [Normodyne TAB] 200 mg PO BID 0603/13/18 03/13/18 History cloNIDine [Catapres] 0.3 mg PO BID 03/13/18 03/13/18 03/13/18 History Review of Systems Constitutional: no weight loss, no weight gain, no fever, no chills Ears, nose, mouth and throat: no ear pain, no ear discharge, no tinnitis, no decreased hearing, no nose pain, no nasal congestion Cardiovascular: no chest pain, no orthopnea, no palpitations, no rapid/ irregular heart beat Respiratory: no cough, no cough with sputum, no excessive sputum, no hemoptysis , no shortness of breath Gastrointestinal: no abdominal pain, no nausea, no vomiting, no diarrhea, no constipation Genitourinary Male: no dysuria, no hematuria, no flank pain, no discharge, no urinary frequency, no urinary hesitancy Rectal: no pain, no incontinence Musculoskeletal: no neck pain, no shooting arm pain, no arm numbness/tingling, no low back pain Integumentary: no rash, no pruritis, no redness, no sores, no wounds Neurological: tremors, lack of coordination Psychiatric: no anxiety, no memory loss, no change in sleep habits, no sleep disturbances, no insomnia, no hypersomnia Endocrine: no cold intolerance, no heat intolerance, no polyphagia, no excessive thirst, no polydipsia, no polyuria, no nocturia Hematologic/Lymphatic: no easy bruising, no easy bleeding, no lymphadenopathy, no lymphedema Allergic/Immunologic: no urticaria, no allergic rhinitis, no wheezing, no persistent infections, no anaphylaxis Exam - Constitutional Vitals: Temp Pulse Resp BP Pulse Ox 98.4 F 66 18 228/86 98 03/13/18 13:02 03/13/18 16:51 03/13/18 16:28 03/13/18 16:51 03/13/18 16:28 General appearance: Present: mild distress - EENT Eyes: Present: PERRL ENT: hearing intact, clear oral mucosa - Neck Neck: Present: supple, normal ROM - Respiratory Respiratory effort: normal Respiratory: bilateral: CTA - Cardiovascular Heart Sounds: Present: S1 & S2. Absent: rub, click - Extremities Extremities: pulses symmetrical, No edema Peripheral Pulses: within normal limits - Abdominal General gastrointestinal: Present: soft, non-tender, non-distended, normal bowel sounds Male genitourinary: Present: normal - Rectal Rectal Exam: normal rectal tone - Integumentary Integumentary: Present: clear, warm, dry - Musculoskeletal Musculoskeletal: generalized weakness - Psychiatric Psychiatric: appropriate mood/affect, intact judgment & insight - Neurologic Neurologic: CNII-XII intact, moves all extremities, no gait normal Results - Labs CBC & Chem 7: 03/13/18 13:23 18 13:23 Labs: Abnormal lab results 18 03/13/18 Range/Units 13:23 13:23 MCV 82 L (84-94) fl RDW 16.7 H (13.2-15.2) % Plt Count 136 L (140-440) K/mm3 Potassium 5.7 H (3.6-5.0) mmol/L BUN 52 H (9-20) mg/dL Creatinine 2.4 H (0.8-1.5) mg/dL Glucose 204 H (75-100) mg/dL Assessment and Plan - Patient Problems (1) ARF (acute renal failure) Current Visit: No Status: Acute Qualifiers: Acute renal failure type: unspecified Qualified Code(s): N17.9 - Acute kidney failure, unspecified Plan to address problem: IVF resuscitation, urine electrolytes, monitor uop q shift, urinalysis, monitor serum creatnine (2) Demyelinating neuropathy Current Visit: Yes Status: Acute Plan to address problem: CT head, Will conduct MRI Brain/Thoracic/Lumbar Spine if serum creatnine improves. If unable to conduct brain imaging, the patient would like to be discharged on Thursday morning around 0800 hrs so that he can see his private neurologist at 1200. Pt has waited 3 months for appointment. The private neurologist is the only Neurologist approved by his insurance. (3) Hyperkalemia Current Visit: Yes Status: Acute Plan to address problem: IVF resuscitation, repeat bmp (4) CAD (coronary artery disease) Current Visit: No Status: Acute Qualifiers: Coronary Disease-Associated Artery/Lesion type: bypass graft [place] vs. transplanted heart: [place] heart Associated angina: without angina Qualified Code(s): I25.810 - Atherosclerosis of coronary artery bypass graft(s) without angina pectoris Plan to address problem: Low cholesterol diet, risk factor reduction, (5) CHF (congestive heart failure) Current Visit: No Status: Acute Qualifiers: Heart failure type: systolic Heart failure chronicity: acute Qualified Code(s): I50.21 - Acute systolic (congestive) heart failure Plan to address problem: Strict I/o, daily weight, monitor uop q shift, afterload reduction, diuresis, supplemental oxygen, (6) DVT prophylaxis Current Visit: No Status: Acute Plan to address problem: scd to ble while in bed
[2018-03-13 18:06] LABS: Bilirubin,Urine NEG (Negative); Blood,Urine SM (Negative); Color,Urine Yellow (Yellow); Hyaline Casts,Urine 17 /LPF; Mucus,Urine FEW /HPF; Urobilinogen,Urine < 2.0 mg/dL (<2.0)
[2018-03-13 18:16] LABS: Amphetamine Screen,Urine PRESUMPTIVE NEGATIVE; Benzodiazepines Screen,Urine PRESUMPTIVE NEGATIVE; Cannabinoid Screen,Urine PRESUMPTIVE NEGATIVE; Cocaine Screen,Urine PRESUMPTIVE NEGATIVE; Methadone Screen,Urine PRESUMPTIVE NEGATIVE; Opiate Screen,Urine PRESUMPTIVE NEGATIVE
[2018-03-13] MEDS ORDERED: PROVENTIL IH PRN (19:06)
[2018-03-13] MEDS ORDERED: ZOFRAN IV PRN (19:06)
[2018-03-13] MEDS ORDERED: SODIUM CHLORIDE FLUSH SYRINGE 10 ML IV PRN (19:06)
[2018-03-13] MEDS ORDERED: TYLENOL PO PRN (19:06)
[2018-03-13] MEDS ORDERED: ATIVAN PO PRN (19:09)
[2018-03-13] MEDS ORDERED: NORMODYNE ONE (20:36)
[2018-03-13] MEDS ORDERED: CATAPRES ONE ×2 (20:36)
[2018-03-13] MEDS ORDERED: CATAPRES PO SCH (22:00)
[2018-03-13] MEDS: NACL 0.45% 1000 ML 1,000 ML IV SCH (22:05)
[2018-03-13] MEDS: CATAPRES PO SCH (22:06)
[2018-03-13] MEDS: SODIUM CHLORIDE FLUSH SYRINGE 10 ML IV SCH (22:06)
[2018-03-13] MEDS: NORMODYNE PO SCH (22:06)
[2018-03-13] MEDS: LANTUS SUB-Q SCH (23:48)
[2018-03-14] MEDS ORDERED: LASIX PO SCH (06:00)
[2018-03-14] MEDS ORDERED: HumaLOG SUB-Q SCH (08:00)
[2018-03-14] MEDS: PLAVIX PO SCH ×2 (08:55→17:19)
[2018-03-14] MEDS: NORMODYNE PO SCH ×2 (08:55→17:19)
[2018-03-14] MEDS: CATAPRES PO SCH ×2 (08:56→17:19)
[2018-03-14] MEDS: HALFPRIN EC PO SCH ×2 (08:56→17:19)
[2018-03-14 09:44] LABS: Creatinine,Urine 102.7 mg/dL (0.1-20.0)
[2018-03-14] MEDS ORDERED: INSULIN DETEMIR 21 UNIT SQ SCH (10:00)
[2018-03-14] MEDS ORDERED: NON-FORMULARY (Insulin Aspart [Novolog Flexpen] 4 UNITS) SQ SCH (10:00)
[2018-03-14] MEDS: HumaLOG SUB-Q SCH ×3 (12:00→22:41)
--- NOTE | 2018-03-14 16:30 | Progress Note ---
Assessment and Plan Assessment and Plan - Patient Problems (1) ARF (acute renal failure) Current Visit: No Status: Acute Qualifiers: Acute renal failure type: unspecified Qualified Code(s): N17.9 - Acute kidney failure, unspecified Plan to address problem: IVF resuscitation, urine electrolytes, monitor uop q shift, urinalysis, monitor serum creatnine improved to 2.0 from 2.4 and BUn from 52 to 44 (2) Demyelinating neuropathy Current Visit: Yes Status: Acute Plan to address problem: CT head, Will conduct MRI Brain/Thoracic/Lumbar Spine if serum creatnine improves. If unable to conduct brain imaging, the patient would like to be discharged on Thursday morning around 0800 hrs so that he can see his private neurologist at 1200. Pt has waited 3 months for appointment. The private neurologist is the only Neurologist approved by his insurance. (3) Hyperkalemia Current Visit: Yes Status: Acute Plan to address problem: IVF resuscitation, repeat bmp Resolved K level came down from 5.7 to 4.2 (4) CAD (coronary artery disease) Current Visit: No Status: Acute Qualifiers: Coronary Disease-Associated Artery/Lesion type: bypass graft [place] vs. transplanted heart: [place] heart Associated angina: without angina Qualified Code(s): I25.810 - Atherosclerosis of coronary artery bypass graft(s) without angina pectoris Plan to address problem: Low cholesterol diet, risk factor reduction, (5) CHF (congestive heart failure) Current Visit: No Status: Acute Qualifiers: Heart failure type: systolic Heart failure chronicity: acute Qualified Code(s): I50.21 - Acute systolic (congestive) heart failure Plan to address problem: Strict I/o, daily weight, monitor uop q shift, afterload reduction, diuresis, supplemental oxygen, (6) DVT prophylaxis Current Visit: No Status: Acute Plan to address problem: scd to ble while in bed Subjective Date of service: 03/14/18 Principal diagnosis: SAMUEL Interval history: Sx better Objective - Constitutional Vitals: Vital Signs - 12hr 03/14/18 03/14/18 03/14/18 07:54 08:55 08:56 Temperature 97.7 F Pulse Rate 62 62 62 Respiratory 18 Rate Blood Pressure 202/73 202/73 202/73 O2 Sat by Pulse 97 Oximetry 03/14/18 03/14/18 11:41 15:06 Temperature 97.8 F 97.9 F Pulse Rate 61 63 Respiratory 18 18 Rate Blood Pressure 164/69 155/51 O2 Sat by Pulse 98 97 Oximetry General appearance: Present: no acute distress, well-nourished - EENT Eyes: PERRL, EOM intact ENT: hearing intact, clear oral mucosa Ears: bilateral: normal - Neck Neck: supple, normal ROM - Respiratory Respiratory effort: normal Respiratory: bilateral: CTA - Breasts Breasts: normal - Cardiovascular Rhythm: regular Heart Sounds: Present: S1 & S2. Absent: gallop, rub Extremities: no ischemia, pulses intact, No edema, normal color, Full ROM - Gastrointestinal General gastrointestinal: Present: soft, non-tender, non-distended, normal bowel sounds - Genitourinary Male genitourinary: normal - Integumentary Integumentary: clear, warm, dry - Musculoskeletal Musculoskeletal: 1, strength equal bilaterally - Neurologic Neurologic: moves all extremities - Psychiatric Psychiatric: memory intact, appropriate mood/affect, intact judgment & insight - Allied health notes Allied health notes reviewed: nursing, case management - Labs CBC & Chem 7: 03/13/18 13:23 03/14/18 19:52 Labs: Abnormal lab results 03/13/18 03/14/18 03/14/18 Range/Units 22:17 06:12 09:07 POC Glucose 274 H 213 H (70-105) Urine Creatinine 102.7 H (0.1-20.0) mg/dL
[2018-03-14] MEDS: SODIUM CHLORIDE FLUSH SYRINGE 10 ML IV SCH (17:20)
[2018-03-14] MEDS: NACL 0.45% 1000 ML 1,000 ML IV SCH (18:03)
[2018-03-14 20:21] LABS: Calcium 8.6 mg/dL (8.4-10.2)
[2018-03-14] MEDS: LANTUS SUB-Q SCH (22:42)
[2018-03-15] MEDS: CATAPRES PO SCH (03:37)
[2018-03-15] MEDS: NACL 0.45% 1000 ML 1,000 ML IV SCH (03:39)
[2018-03-15] MEDS: NORMODYNE PO SCH (03:44)
--- NOTE | 2018-03-15 06:46 | Discharge Summary ---
Providers - Providers Date of Admission: 03/13/18 19:06 Date of discharge: 03/15/18 Attending physician: ANUSHA GAVIN Primary care physician: NOELLE STEVENS Hospitalization Condition: Fair Hospital course: Assessment and Plan - Patient Problems (1) ARF (acute renal failure) Current Visit: No Status: Acute Qualifiers: Acute renal failure type: unspecified Qualified Code(s): N17.9 - Acute kidney failure, unspecified Plan to address problem: IVF resuscitation, urine electrolytes, monitor uop q shift, urinalysis, monitor serum creatnine improved to 2.0 from 2.4 and BUn from 52 to 44 today's BMP not available. Pateint to be discharged today inspite of SAMUEL because of his Neurology appointment.if not he wants to go AMA. Patient to follow with [facility] as outpatient. Patient has a [facility] Dr Carlin who he will follow as outpatient Has CKD and apparently baseline creatinine was 3.0 and 2.0 is a improvement. (2) Demyelinating neuropathy Current Visit: Yes Status: Acute Plan to address problem: CT head, Will conduct MRI Brain/Thoracic/Lumbar Spine if serum creatnine improves. If unable to conduct brain imaging, the patient would like to be discharged on Thursday morning around 0800 hrs so that he can see his private neurologist at 1200. Pt has waited 3 months for appointment. The private neurologist is the only Neurologist approved by his insurance. Pateint to be discharged today inspite of SAMUEL because of his Neurology appointment (3) Hyperkalemia Current Visit: Yes Status: Acute Plan to address problem: IVF resuscitation, repeat bmp Resolved K level came down from 5.7 to 4.2 (4) CAD (coronary artery disease) Current Visit: No Status: Acute Qualifiers: Coronary Disease-Associated Artery/Lesion type: bypass graft [place] vs. transplanted heart: [place] heart Associated angina: without angina Qualified Code(s): I25.810 - Atherosclerosis of coronary artery bypass graft(s) without angina pectoris Plan to address problem: Low cholesterol diet, risk factor reduction, (5) CHF (congestive heart failure) Current Visit: No Status: Acute Qualifiers: Heart failure type: systolic Heart failure chronicity: acute Qualified Code(s): I50.21 - Acute systolic (congestive) heart failure Plan to address problem: Strict I/o, daily weight, monitor uop q shift, afterload reduction, diuresis, supplemental oxygen, Disposition: DC-01 TO HOME OR SELFCARE Core Measure Documentation - Palliative Care Palliative Care/ Comfort Measures: Not Applicable - Core Measures Any of the following diagnoses?: none Exam - Constitutional Vitals: Temp Pulse Resp BP Pulse Ox 98.3 F 81 18 153/73 98 03/14/18 19:33 03/15/18 03:44 03/14/18 19:33 03/15/18 03:44 03/14/18 20:31 General appearance: Present: no acute distress, well-nourished - EENT Eyes: Present: PERRL ENT: hearing intact, clear oral mucosa - Neck Neck: Present: supple, normal ROM - Respiratory Respiratory effort: normal Respiratory: bilateral: CTA - Cardiovascular Heart Sounds: Present: S1 & S2. Absent: rub, click - Extremities Extremities: pulses symmetrical, No edema Peripheral Pulses: within normal limits - Abdominal General gastrointestinal: Present: soft, non-tender, non-distended, normal bowel sounds Male genitourinary: Present: normal - Integumentary Integumentary: Present: clear, warm, dry - Musculoskeletal Musculoskeletal: gait normal, strength equal bilaterally - Psychiatric Psychiatric: appropriate mood/affect, intact judgment & insight - Neurologic Neurologic: CNII-XII intact, moves all extremities Plan Weight Bearing Status: Weight Bear as Tolerated Diet: low cholesterol, low salt, renal Follow up with: NOELLE STEVENS MD [Primary Care Provider] - 3-5 Days
[2018-03-15] MEDS ORDERED: HumaLOG SUB-Q SCH (07:30)
[2018-03-15 07:31] LABS: Calcium 8.6 mg/dL (8.4-10.2)
[2018-03-15 07:46] LABS: Basophils % (Auto) 0.7 % (0.0-1.8); Eosinophils # (Auto) 0.3 K/mm3 (0.0-0.4); Eosinophils % (Auto) 4.3 % (0.0-4.3); Hematocrit 34.6 % (35.5-45.6); Hemoglobin 11.8 gm/dl (11.8-15.2); Lymphocytes # (Auto) 1.3 K/mm3 (1.2-5.4); Lymphocytes % (Auto) 20.7 % (13.4-35.0); Mean Corpuscular HGB Conc 34 % (32-34); Mean Corpuscular Hemoglobin 28 pg (28-32); Mean Corpuscular Volume 82 fl (84-94); Monocytes # (Auto) 0.4 K/mm3 (0.0-0.8); Monocytes % (Auto) 7.1 % (0.0-7.3); Platelet Count 116 K/mm3 (140-440); Red Blood Count 4.24 M/mm3 (3.65-5.03)
[2018-03-15 09:21] VITALS: BP 198/87
--- NOTE | 2018-03-15 14:26 | Cat Scan Report ---
FINAL REPORT EXAM: CT HEAD/BRAIN WO CON HISTORY: SZ on plavix TECHNIQUE: CT of the head was performed without intravenous contrast. PRIORS: None. FINDINGS: The ventricles are normal in shape and position. The ventricles are nondilated. No intracranial hemorrhage, mass, mass effect, midline shift or evidence of acute ischemic infarct. The basilar cisterns are patent. There is mild diffuse cerebral volume loss. 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 Mild mucosal thickening of the right maxillary sinus is likely congestive or inflammatory. The extracranial soft tissues demonstrate no abnormality. The calvarium is intact. The orbits are intact. The mastoid air cells are clear. IMPRESSION: 1. No acute intracranial abnormality. 2. 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 3. Diffuse cerebral volume loss.
== END 2018-03-15 09:00 | disposition home or self-care (01) | DRG 683 ==
LOC: ED 12:57 → 3A 19:06
PROVIDERS: ADMIT Internal Medicine; ATTEND Internal Medicine
DX: N17.9 Acute kidney failure, unspecified (principal); I13.0 Hypertensive heart and chronic kidney disease with heart failure and stage 1 through stage 4 chronic kidney disease, or unspecified chronic kidney disease; G62.9 Polyneuropathy, unspecified; E87.5 Hyperkalemia; I50.9 Heart failure, unspecified; I25.10 Atherosclerotic heart disease of native coronary artery without angina pectoris; N18.9 Chronic kidney disease, unspecified; E11.22 Type 2 diabetes mellitus with diabetic chronic kidney disease; Z95.1 Presence of aortocoronary bypass graft; I25.2 Old myocardial infarction; Z79.82 Long term (current) use of aspirin; Z79.899 Other long term (current) drug therapy
CPT/HCPCS: 36415; 70450; 80048; 80074; 80307; 81001; 82570; 82962; 83735; 84300; 85025; 85027; 85610; 85730; 93005; 93010; A9270-GY; J1815